=== PATIENT | female | born 1935 | race Caucasian/White ===

== ENCOUNTER 2016-09-11 18:38 | Inpatient (IN) ==
--- NOTE | 2016-09-11 18:57 | Emergency Department Note ---
Disposition Clinical Impression: Fracture, intertrochanteric, left femur Qualifiers: Encounter type: initial encounter Fracture type: closed Qualified Code(s): S72.142A - Displaced intertrochanteric fracture of left femur, initial encounter for closed fracture Disposition: Admitted As Inpatient Condition: Good Referrals: Unassigned,Provider [Non-Partnered Physician] - Forms: ED Satisfaction Letter Time of Disposition: 20:28 Fall HPI - General Chief Complaint: ED Fall Stated Complaint: fall Time Seen by Provider: 09/11/16 18:41 Source: patient, family Mode of arrival: ambulatory Limitations: no limitations Nursing Notes Reviewed: Yes Vital Signs Reviewed: Yes - History of Present Illness HPI Narrative: 80-year-old female history of Parkinson's disease and scoliosis presents to the ED status post fall. Daughter and son-in-law are at bedside to help provide history. Patient reportedly fell from standing at home. Complains of pain in the left knee and left hip. She was attempting to transition from a walker to wheelchair. She denies any prodromal symptoms such as lightheadedness, chest pain, shortness of breath, pain in the legs or weakness. She has been progressively getting weaker over the past several years. Denies any prior surgeries or pain in the hip or knee. Does not take any blood thinners or anticoagulants. No recent illness. 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 Constitutional: Denies: fever, chills Cardiovascular: Denies: chest pain Respiratory: Denies: cough, dyspnea Musculoskeletal: Reports: back pain, arthralgia (left knee). Denies: neck pain Fall PMH - Past Medical History Medical history: Reports: arthritis, hypertension Reports: Parkinson's Disease Surgical history: Reports: cholecystectomy, herniorrhaphy, hysterectomy Psychiatric history: Reports: no psych history - Social History Smoking Status: Former smoker Alcohol use: Reports: none Drug use: Reports: none Physical Exam - General Limitations: no limitations General appearance: alert, anxious - Head Head exam: atraumatic, normocephalic, normal inspection - Eye Eye exam: Present: normal appearance, PERRL, EOMI - ENT ENT exam: normal exam, normal oropharynx, mucous membranes moist - Neck Neck exam: Present: normal inspection, full ROM, trachea midline - Chest Chest inspection: Present: normal inspection, symmetric chest wall rise. Absent : tenderness - Respiratory Respiratory exam: Present: normal lung sounds bilaterally, other (hx of scoliosis but has good lung sounds bilaterally). Absent: respiratory distress, wheezes - Cardiovascular Cardiovascular exam: Present: regular rate, normal rhythm, normal heart sounds - Abdominal Exam Abdominal exam: Present: soft, Non-Tender, normal bowel sounds. Absent: tenderness, distention, guarding, rebound, rigidity - Extremities Exam Extremities exam: Present: normal capillary refill. Absent: calf tenderness - Expanded Lower Extremity Exam Hip/Pelvis exam: Present: tenderness (left), deformity, internal rotation, shortening, pelvis stable. Absent: swelling, abrasion, laceration, ecchymosis, erythema Upper leg exam: Absent: tenderness, swelling, deformity, dislocation Knee exam: Present: tenderness, other (unable to fully assess, no bony tenderness, in constant flexion). Absent: swelling, deformity, erythema Lower leg exam: Absent: tenderness Ankle exam: Present: normal inspection, full ROM. Absent: tenderness Foot/toe exam: Present: normal inspection, full ROM Neurovascular/Tendon exam: Present: normal capillary refill. Absent: pulse deficit, motor deficit, sensory deficit, tendon deficit Gait: not tested/not observed - Back Exam Back exam: Present: other (sciolosis) - Neurological Exam Neurological exam: Present: alert, oriented X3 - Psychiatric Psychiatric exam: Present: normal affect, anxious - Skin Skin exam: Present: warm, dry, intact, normal color Course Course Narrative: 80-year-old female history of generalized weakness in Parkinson's presents to ED status post fall. This occurred at home prior to arrival. Patient presents in a rotated position with legs appearing to be equal length but internally rotated. She does not move the knee or hip with passive or active motion due to pain. She has good peripheral pulses to posterior tibial arteries. Femoral pulses unable to appreciate due to positioning. Unable to fully evaluate knee due to positioning, remains in full flexion. She has a severely scoliotic spine but no bony tenderness. Pelvis is stable. Discussed with family if further workup is necessary. They state she has been weak for over 10 years and recently diagnosed with Parkinson's and now on medications. This unfortunately is her first time falling like this. Will proceed with x-ray of left hip and knee. Offered medication for pain, patient kindly refuses, stating not painful as long as no one touches it. Informed her to ask if pain becomes untolerable - Reevaluation(s) Reevaluation #1: Received call from electronics technician apprentice that she has an obvious left femur fracture and unable to obtain knee images. Re-examined her knee and does not have significant tenderness, will hold off on images pending CT of pelvis and hip. Discussed results with patient and daughter. Patient continues to deny significant pain that she would like medications. She appears comfortable as long as her legs remain immobile. Dilaudid ordered for pain. Labs will be drawn as she will likely need surgery. Time: 19:36 Reevaluation #2: Discussed with patient and family. Ok to admit here. Patient is very pleased to hear the name Dr. Kaur. Discussed the importance of admission for pain control and any further intervention. Will admit to hospitalist for femur fracture. Patient and family in agreement with plan. Patient voices concerns with anesthesia as last procedure 10+ years ago she had a prolonged wake time. Reiterated the importance of informing staff if surgery is considered. IV dilaudid ordered for pain. Basic labs and type/screen ordered. Time: 20:10 - Consultations Consultation #1: Spoke with maximo Lopez to admit will like to admit to hospitalist and evaluate tomorrow morning for left intertrochanteric fracture. Time: 19:55 Consultation #2: Spoke with maximo Marr to admit for left intertrochanteric fracture. Time: 20:29 Vital Signs Temperature 97.5 F L 09/11/16 18:40 Pulse Rate 92 09/11/16 18:40 Respiratory Rate 18 09/11/16 18:40 Blood Pressure 138/61 09/11/16 18:40 O2 Sat by Pulse Oximetry 98 09/11/16 18:40 Temperature 97.5 F L 09/11/16 18:40 Pulse Rate 92 09/11/16 18:40 Respiratory Rate 18 09/11/16 18:40 Blood Pressure 138/61 09/11/16 18:40 O2 Sat by Pulse Oximetry 98 09/11/16 18:40 Oxygen Delivery Oxygen Delivery Room Air Fall - Medical Records Medical records reviewed: Yes I reviewed the patient's medical records. - Lab Data Result diagrams: 09/11/16 20:17 Lab Results 09/11/16 Range/Units 20:17 WBC 18.5 H (4.3-11.1) K/mcL RBC 4.12 (3.82-4.97) M/mcL Hgb 12.3 (11.5-15.4) g/dL Hct 37.6 (35.3-44.9) % MCV 91.3 (83.0-100.0) fL MCH 29.9 (28.0-33.3) pg MCHC 32.7 (31.6-35.5) g/dL RDW 12.9 (11.5-14.5) % Plt Count 284 (140-400) K/mcL MPV 10.2 (9.4-12.4) fL Immature Gran % 0.4 (0-4) % Seg Neutrophils % 81.2 % Lymphocytes % 11.6 % Monocytes % 6.4 % Eosinophils % 0.2 % Basophils % 0.2 % Neutrophils # 15.0 H (1.6-8.9) K/mcL Lymphocytes # 2.1 (0.6-4.6) K/mcL Monocytes # 1.2 (0.0-1.3) K/mcL Eosinophils # 0.0 (0.0-0.6) K/mcL Basophils # 0.0 (0.0-0.2) K/mcL - Radiology Data Radiology results reviewed: Yes I reviewed the patient's radiology results. Hip X-Ray 09/11/16 18:48 IMPRESSION: Left intertrochanteric fracture. D/ / 09/11/2016 19:26:54 Greg Al MD / eric Interpreting Provider: Greg Al MD Knee X-Ray 09/11/16 18:48 IMPRESSION: No acute fracture. D/ / 09/11/2016 19:27:13 Greg Al MD / eric Interpreting Provider: Greg Al MD - EKG Data EKG attestation: Yes I reviewed and interpreted this EKG. EKG results narrative: EKG performed 1950 there is some underlying artifact but appears to be sinus rhythm with occasional PVCs 94 bpm, no significant ST or T wave changes. This is compared to or EKG performed 07/20/2011 which shows normal sinus rhythm 76 bpm with borderline first-degree AV block. No acute ischemic changes.
--- NOTE | 2016-09-11 18:58 | Emergency Department Note ---
START Narrative - START START: I examined this patient and my medical decision-making was reviewed with the HYBR[employer]IV[employer]IVES TRADER/PA/Advanced Practice Nurse/Resident Physician. I agree with the documented findings, disposition and treatment plan as described except to the extent set forth below. ED attending: Patient's emergency medicine resident Dr. RUTHERFORD. Please see copy of this note for H&P evaluation and management and ED disposition. We both had independent [id number] time in contact with this patient. Briefly: 80-year-old female history of Parkinson's comes in with progressive weakness and unsteady gait. Injured her left hip and knee which is slightly swollen. Not on any blood thinners other than aspirin. Afebrile with stable vital signs. Plain films of the hip and knee are pending. Disposition pending. Patient stable
[2016-09-11] MEDS ORDERED: Ondansetron 4 MG/2 ML VIAL IVP STA (19:12)
[2016-09-11] MEDS ORDERED: *HR* HYDROmorphone (PF) 1 MG/ML SYRINGE IVP ONE (19:12)
[2016-09-11 20:26] LABS: Basophils % 0.2 %; Eosinophils % 0.2 %; Hematocrit 37.6 % (35.3-44.9); Hemoglobin 12.3 g/dL (11.5-15.4); Immature Granulocytes % 0.4 % (0-4); Lymphocytes # 2.1 K/mcL (0.6-4.6); Lymphocytes % 11.6 %; Mean Corpuscular HGB Conc 32.7 g/dL (31.6-35.5); Mean Corpuscular Hemoglobin 29.9 pg (28.0-33.3); Mean Corpuscular Volume 91.3 fL (83.0-100.0); Mean Platelet Volume 10.2 fL (9.4-12.4); Monocytes # 1.2 K/mcL (0.0-1.3); Monocytes % 6.4 %; Platelet Count 284 K/mcL (140-400); Red Blood Count 4.12 M/mcL (3.82-4.97); Red Cell Distribution Width 12.9 % (11.5-14.5); Segmented Neutrophils % 81.2 %
[2016-09-11 20:33] LABS: INR 1.2; Prothrombin Time 12.8 Seconds (9.4-12.1)
[2016-09-11 20:38] LABS: BUN/Creatinine Ratio 18 (6-26); Blood Urea Nitrogen 13 mg/dL (7-20); Calcium 9.5 mg/dL (8.6-10.8); Carbon Dioxide 25 mEq/L (19-29); Chloride 100 mEq/L (98-109); Glucose 142 mg/dL (70-99); Osmolality,Calculated 285 (280-300); Potassium 4.9 mEq/L (3.5-4.5); Sodium 136 mEq/L (136-145); eGFR For African Americans > 60 (> 60); eGFR For Non-African Americans > 60 (> 60)
[2016-09-11] MEDS ORDERED: Mag Hydrox/Al Hydrox/Simeth 30 ML UDC PO PRN (21:40)
[2016-09-11] MEDS ORDERED: Ondansetron 4 MG/2 ML VIAL IVP PRN (21:40)
[2016-09-11] MEDS ORDERED: *HR* Morphine 2 MG/ML SYRINGE IVP PRN (21:40)
[2016-09-11] MEDS ORDERED: Acetaminophen 325 MG TABLET PO PRN (21:40)
[2016-09-11] MEDS ORDERED: MOM Conc 10 ML UD.LIQ PO PRN (21:40)
[2016-09-11] MEDS ORDERED: Naloxone 0.4 MG/ML INJ IVP PRN (21:40)
[2016-09-11] MEDS ORDERED: Ipratropium/Albuterol Neb 3 ML IH PRN (21:45)
[2016-09-11] MEDS ORDERED: Albuterol 2.5 MG/3 ML NEBULIZER IH PRN (21:45)
--- NOTE | 2016-09-11 21:49 | Internal Med History&Physical ---
<Diana Roldan - Last Filed: 09/11/16 21:56> Date of Encounter: 09/11/16 Time of Encounter: 21:15 Assessment and Plan (1) CAP (community acquired pneumonia) Current visit: Yes Status: Acute CT abd/pelvis shows perihilar ground glass opacity. Pt denies fever, cough, or chest pain. Will treat as CAP empirically. WBC 18.5. CT chest w/o contrast ordered Rocephin 1 gram IV daily Azithromycin 500mg IV daily Duonebs q4h Albuterol nebs q2hprn Incentive Spriometry Monitor labs (2) Fracture, intertrochanteric, left femur Current visit: Yes Status: Acute Pt fell at home this evening. Intertrochanteric fracture of the L hip with varus deformity and [address] Kaur has already been consulted Pain control NPO after midnight for pending/potential surgery Qualifiers: Encounter type: initial encounter Fracture type: closed Qualified Code(s) : S72.142A - Displaced intertrochanteric fracture of left femur, initial encounter for closed fracture (3) Scoliosis Current visit: Yes Status: Acute Stable Qualifiers: Scoliosis type: unspecified scoliosis Spinal region: unspecified Qualified Code(s): M41.9 - Scoliosis, unspecified (4) HTN (hypertension) Current visit: Yes Status: Chronic VSS. Will continue to monitor. Pt on telemetry and VS q4h ordered. Waiting on home medication list from family Qualifiers: Hypertension type: essential hypertension Qualified Code(s): I10 - Essential (primary) hypertension (5) Decubitus ulcer of left ischium, stage 3 Current visit: No Status: Acute stable. Present prior to admission. (6) Decubitus ulcer of right buttock, stage 2 Current visit: No Status: Acute Stable. Present prior to admission. Internal Medicine - H&P: HPI Chief complaint: fall, hip fx today Admitted From: Home Plans for Post Hospital Care: Transfer Inp Rehab Fac History of present illness: Ms. Urbina is a 80 year old female with a history of scoliosis, HTN, GERD, and most recently, Parkinson's. Pt fell at home tonight, reports that she does not know why, but denies cp, sob, or dizziness prior to event. Pt has acute intertrochanteric fracture of the L hip with varus deformity and 90 degree angular deformity without pelvic fracture. CT abd and pelvis shows perihilar ground glass opacity with R hemidiaphragm elevation and normal cardiac size. Family at bs and will go home to get home medication list. Pt is a poor historian, caregiver is at bedside and is unaware of history or medications. Past Med Surg Social Fam HX - Past Medical History Medical history: arthritis, hypertension Psychiatric history: no psych history - Past Surgical History Surgical History: cholecystectomy, herniorrhaphy, hysterectomy - Social History Smoking Status: Former smoker Smokeless Tobacco Status: No Alcohol use: none Drug use: none - Family History Mother Living Status: Hx Family Endocrine Disorder: Yes Internal Medicine - H&P: Meds Allergies No Known Allergies Allergy (Unverified 08/01/15 13:15) All Systems PM: A 10-system review of systems was performed and is negative for pertinent findings except as documented above in the HPI. - Constitutional Constitutional: falls, no chills, no fever(s), no weakness - Cardiovascular Cardiovascular ROS IM: no chest pain, no dyspnea, no dyspnea on exertion, no edema - Respiratory Respiratory: no cough, no dyspnea, no dyspnea on exertion, no wheezing, no chest congestion, no excessive phlegm production - Gastrointestinal Gastrointestinal: no diarrhea, no nausea, no vomiting - Genitourinary Genitourinary: no dysuria - Constitutional Vitals: Temp Pulse Resp BP Pulse Ox 97.1 F L 95 15 133/70 98 09/11/16 21:26 09/11/16 21:26 09/11/16 21:26 09/11/16 21:26 09/11/16 21:26 General appearance: Present: A&O X 3, pleasant - Head Head exam: Present: atraumatic, normal inspection - ENT ENT exam: Present: mucous membranes dry, normal exam, normal external ear exam - Respiratory Respiratory exam: Present: decreased breath sounds, rhonchi. Absent: accessory muscle use, chest wall tenderness Additional comments: ronchi in evelia bases, clears with cough. No wheezing. - Cardiovascular Cardiovascular exam: Present: RRR, +S1, +S2. Absent: diastolic murmur, systolic murmur - GI/Abdominal GI/Abdominal exam: Present: normal bowel sounds, soft. Absent: tenderness - Extremities Exam Extremities exam: Present: normal capillary refill, tenderness, warm, radial pulses palpable and symetrical. Absent: calf tenderness, full ROM, pedal edema Additional comments: Pt is actually lying on L hip. She says that she is most comfortable like that. Both legs are bent with blanket between. - Neurological Exam Neurological exam: Present: alert, oriented X3. Absent: speech deficit Internal Med - H&P Results - Labs CBC & Chem 7: 09/11/16 20:17 09/11/16 20:17 <ThompsonGene Clement - Last Filed: 09/12/16 05:59> Date of Encounter: 09/11/16 Assessment and Plan (1) Closed comminuted intertrochanteric fracture of left femur Current visit: Yes Status: Acute . (2) Kyphoscoliosis deformity of spine Current visit: Yes Status: Chronic . (3) DDD (degenerative disc disease), thoracolumbar Current visit: Yes Status: Chronic . (4) Subluxation of L3-L4 lumbar vertebra Current visit: Yes Status: Chronic . Qualifiers: Encounter type: initial encounter Qualified Code(s): S33.130A - Subluxation of L3/L4 lumbar vertebra, initial encounter (5) Spigelian hernia Current visit: Yes Status: Chronic . (6) Parkinson disease Current visit: Yes Status: Chronic . (7) Frailty Current visit: Yes Status: Chronic . (8) Generalized weakness Current visit: Yes Status: Chronic . (9) HTN (hypertension) Current visit: Yes Status: Chronic Qualifiers: Hypertension type: essential hypertension Qualified Code(s): I10 - Essential (primary) hypertension (10) Decubitus ulcer of left ischium, stage 3 Current visit: Yes Status: Acute (11) Decubitus ulcer of right buttock, stage 2 Current visit: Yes Status: Acute Internal Medicine - H&P: HPI History of present illness: Ms. Urbina is a 80 year old female admitted to [facility] in the emergency department with a chief complaint of mechanical fall with injury to the left hip. The patient was visited and interviewed and examined. She was found to be mildly encephalopathic, frail, inattentive with garbled incomprehensible speech. As such she was a unreliable, non-historian of current circumstances and events and details were collected from the family members at the bedside and tangible medical records. I examined this patient and my medical decision-making was reviewed with the Advanced Practice Nurse. For this encounter, I have reviewed the [facility] documentation, treatment plan, and medical decision making; and I have had face to face time with this patient. I agree with the documented findings, disposition and treatment plan as described except to the extent set forth below. Cumulative laboratory and radiographic database was reviewed and considered and discussed. Given the patient's presenting concerns, past medical history, clinical findings and symptoms, she is admitted at this time to undergo further evaluation and disposition. Preliminary impressions suggested an unprovoked mechanical fall patient with advanced Parkinson's disease and severe multilevel misalignment due to scoliotic curvature of the spine. Associated gait instability due to her cancer disease with progressive weakness and unsteadiness of gait compounds this presentation.. The patient sustained as a consequence of her fall acute comminuted intertrochanteric fracture of the left hip with varus deformity. Not currently on any chronic anticoagulation, blood thinners or antiplatelet agents beyond a baby aspirin daily. The patient has not undergone any recent surgical interventions nor any prolong hospitalizations. No report of any current acute illnesses , travel or sick exposures. Beyond hypertension, thepatient lacks any other significant active cardiovascular risk factors or historical events. She is a former smoker of greater than 10 years abstinence. Collectively, she presents a low to moderate cardiovascular risk for major acute coronary event in setting of anticipated orthopedic surgical intervention. Workup and treatments will proceed comprehensively. Past Med Surg Social Fam HX - Past Medical History Source: old records reviewed Medical history: arthritis, osteoporosis, seizures (Perkinson's disease), other (0 left lower abdominal quadrant speaking daily and hernia containing bowel without evidence of incarceration.) All Systems PM: A 10-system review of systems was performed and is negative for pertinent findings except as documented above in the HPI. - Constitutional Vitals: Temp Pulse Resp BP Pulse Ox 97.3 F L 106 15 133/71 97 09/12/16 04:00 09/12/16 04:00 09/12/16 04:00 09/12/16 04:00 09/12/16 04:00 Internal Med - H&P Results - Labs CBC & Chem 7: 09/11/16 20:17 09/11/16 20:17 Labs: Cardiac Enzymes 09/11/16 Range/Units 22:12 Troponin I 0.00 (0-0.03) ng/mL - Impressions ITS Impressions Chest CT 09/11/16 21:39 IMPRESSION: 1. Chronic elevation of the right greater than left hemidiaphragm with associated atelectasis in the right lower lobe and minimal atelectasis in the left lower lobe. 2. Acute pneumonitis is considered unlikely, as the lungs are otherwise clear. D/ / Robin Layton MD / Robin Layton MD Interpreting Provider: Robin Layton MD Vital Signs Temp Pulse Resp BP Pulse Ox 09/12/16 04:00 97.3 F L 106 15 133/71 97 09/12/16 00:00 97.1 F L 101 15 135/75 98 09/11/16 21:26 97.1 F L 95 15 133/70 98 09/11/16 20:42 0 F L 16 136/72 09/11/16 20:33 0 F L 97 16 136/72 97 09/11/16 18:40 97.5 F L 92 18 138/61 98 Intake and Output 09/11/16 09/11/16 09/12/16 15:59 23:59 07:59 Intake Total 350 / 350 Output Total 700 / 700 Balance -350 / -350 Intake: IV Fluids 350 / 350 Zithromax 500 mg In 250 / 250 Dextrose 5% 250 ML @ 252 mls/hr IVPB Q24H [facility] Rx#: [id number] Rocephin 1,000 MG In 100 / 100 Dextrose 5% (Minibag+) 100 ML 100 ML @ 200 mls/ hr IVPB DAILY [facility] Rx#: [id number] Output: Catheter 700 / 700 Other: Weight 73.482 kg Short CBC 09/11/16 Range/Units 20:17 WBC 18.5 H (4.3-11.1) K/mcL Hgb 12.3 (11.5-15.4) g/dL Hct 37.6 (35.3-44.9) % Plt Count 284 (140-400) K/mcL Neutrophils # 15.0 H (1.6-8.9) K/mcL BMP 09/11/16 Range/Units 20:17 Sodium 136 (136-145) mEq/L Potassium 4.9 H (3.5-4.5) mEq/L Chloride 100 (98-109) mEq/L Carbon Dioxide 25 (19-29) mEq/L BUN 13 (7-20) mg/dL Creatinine 0.73 (0.57-1.11) mg/dL Glucose 142 H (70-99) mg/dL Calcium 9.5 (8.6-10.8) mg/dL Cardiac Enzymes 09/11/16 Range/Units 22:12 Troponin I 0.00 (0-0.03) ng/mL Abnormal lab results WBC 18.5 K/mcL (4.3-11.1) H 09/11/16 20:17 Neutrophils # 15.0 K/mcL (1.6-8.9) H 09/11/16 20:17 PT 12.8 Seconds (9.4-12.1) H 09/11/16 20:17 Potassium 4.9 mEq/L (3.5-4.5) H 09/11/16 20:17 Glucose 142 mg/dL (70-99) H 09/11/16 20:17 Allergies Allergy/AdvReac Type Severity Reaction Status Date / Time No Known Allergies Allergy Unverified 08/01/15 13:15 Laboratory Results WBC 18.5 K/mcL (4.3-11.1) H 09/11/16 20:17 RBC 4.12 M/mcL (3.82-4.97) 09/11/16 20:17 Hgb 12.3 g/dL (11.5-15.4) 09/11/16 20: Hct 37.6 % (35.3-44.9) 09/11/16 20: MCV 91.3 fL (83.0-100.0) 09/11/16 20: MCH 29.9 pg (28.0-33.3) 09/11/16 20: MCHC 32.7 g/dL (31.6-35.5) 09/11/16 20: RDW 12.9 % (11.5-14.5) 09/11/16 20:17 Plt Count 284 K/mcL (140-400) 09/11/16 20: MPV 10.2 fL (9.4-12.4) 09/11/16 20:17 Immature Gran % 0.4 % (0-4) 09/11/16 20:17 Seg Neutrophils % 81.2 % 09/11/16 20:17 Lymphocytes % 11.6 % 09/11/16 20:17 Monocytes % 6.4 % 09/11/16 20:17 Eosinophils % 0.2 % 09/11/16 20:17 Basophils % 0.2 % 09/11/16 20:17 Neutrophils # 15.0 K/mcL (1.6-8.9) H 09/11/16 20:17 Lymphocytes # 2.1 K/mcL (0.6-4.6) 09/11/16 20:17 Monocytes # 1.2 K/mcL (0.0-1.3) 09/11/16 20: Eosinophils # 0.0 K/mcL (0.0-0.6) 09/11/16 20: Basophils # 0.0 K/mcL (0.0-0.2) 09/11/16 20:17 PT 12.8 Seconds (9.4-12.1) H 09/11/16 20:17 INR 1.2 09/11/16 20:17 APTT 27.0 Seconds (26.0-36.0) 09/11/16 20:17 Sodium 136 mEq/L (136-145) 09/11/16 20:17 Potassium 4.9 mEq/L (3.5-4.5) H 09/11/16 20:17 Chloride 100 mEq/L (98-109) 09/11/16 20:17 Carbon Dioxide 25 mEq/L (19-29) 09/11/16 20:17 BUN 13 mg/dL (7-20) 09/11/16 20:17 Creatinine 0.73 mg/dL (0.57-1.11) 09/11/16 20:17 Est GFR ( Amer) > 60 (> 60) 09/11/16 20:17 Est GFR (Non-Af Amer) > 60 (> 60) 09/11/16 20:17 BUN/Creatinine Ratio 18 (6-26) 09/11/16 20:17 Glucose 142 mg/dL (70-99) H 09/11/16 20:17 Calculated Osmolality 285 (280-300) 09/11/16 20:17 Calcium 9.5 mg/dL (8.6-10.8) 09/11/16 20:17 Troponin I 0.00 ng/mL (0-0.03) 09/11/16 22:12 Blood Type A POSITIVE 09/11/16 20:17 Antibody Screen NEGATIVE 09/11/16 20:17 Impressions Hip X-Ray 09/11/16 18:48 IMPRESSION: Left intertrochanteric fracture. D/ / 09/11/2016 19:26:54 Greg Al MD / eric Interpreting Provider: Greg Al MD Knee X-Ray 09/11/16 18:48 IMPRESSION: No acute fracture. D/ / 09/11/2016 19:27:13 Greg Al MD / eric Interpreting Provider: Greg Al MD Abdomen/Pelvis CT 09/11/16 19:12 IMPRESSION: There is perihilar ground-glass opacity, possibly atelectasis. Pneumonitis and edema are not excluded. There is left lateral subluxation of L3 on L4. There is multilevel degenerative disc disease and facet arthropathy. Acute intertrochanteric fracture of the left hip with varus deformity. Pelvic floor laxity with low position of the bladder floor and rectum. D/ / Jamar Samuels MD / Jamar Samuels MD Interpreting Provider: Jamar Samuels MD Chest CT 09/11/16 21:39 IMPRESSION: 1. Chronic elevation of the right greater than left hemidiaphragm with associated atelectasis in the right lower lobe and minimal atelectasis in the left lower lobe. 2. Acute pneumonitis is considered unlikely, as the lungs are otherwise clear. D/ / Robin Layton MD / Robin Layton MD Interpreting Provider: Robin Layton MD - Attending Attestation My signature below is to certify that this patient is under my care and that I, or the Nurse Practitioner working with me, has had a [id number] encounter with this patient. Care has been reviewed and discussed in detail with the patient and family. Questions addressed. Advance care directive discussion briefly addressed. The patient does not possess any declared healthcare restriction at this time. Outpatient medication schedule will be reviewed, confirmed and facilitated as appropriate. Reconciliation of home treatments including adjustments, substitutions and reintroduction to the treatment regimen will address necessary maintenance therapies for chronic pre-existing medical conditions. Smoking cessation counseling briefly addressed. Patient is a former smoker. Pain management needs will be addressed. Initial consultative opinions have been requested of social economist, physical and occupational therapy, and orthopedic surgery.. Hospital course will depend on clinical findings, treatment response and potential consultative interventions. The patient is a risk of further acute clinical decline and morbidity given his presenting chief complaint, frailty disease. Condition is serious. Prognosis is guarded. CODE STATUS is full.
[2016-09-11] MEDS ORDERED: Azithromycin 500 MG in D5% in Water 250 ML IVPB SCH (22:00)
[2016-09-12] MEDS ORDERED: *HR* OxyCODONE Immed Rel 5 MG TABLET PO PRN (04:50)
[2016-09-12] MEDS ORDERED: *HR* Morphine 2 MG/ML SYRINGE IVP PRN ×2 (04:54→18:01)
[2016-09-12] MEDS ORDERED: 0.9 % Sodium Chloride 1,000 ML IVC SCH ×2 (05:00→18:01)
[2016-09-12] MEDS ORDERED: *HR* Heparin 5,000 UNIT/ML VIAL SQ SCH (06:00)
[2016-09-12 08:26] LABS: Basophils % 0.1 %; Hematocrit 35.9 % (35.3-44.9); Hemoglobin 11.4 g/dL (11.5-15.4); Immature Granulocytes % 0.4 % (0-4); Lymphocytes # 1.5 K/mcL (0.6-4.6); Lymphocytes % 9.7 %; Mean Corpuscular HGB Conc 31.8 g/dL (31.6-35.5); Mean Corpuscular Hemoglobin 28.6 pg (28.0-33.3); Mean Corpuscular Volume 90.2 fL (83.0-100.0); Mean Platelet Volume 10.5 fL (9.4-12.4); Monocytes # 1.3 K/mcL (0.0-1.3); Monocytes % 8.3 %; Neutrophils # 12.6 K/mcL (1.6-8.9); Platelet Count 268 K/mcL (140-400); Red Blood Count 3.98 M/mcL (3.82-4.97); Red Cell Distribution Width 12.8 % (11.5-14.5); Segmented Neutrophils % 81.5 %
[2016-09-12 08:31] LABS: BUN/Creatinine Ratio 19 (6-26); Blood Urea Nitrogen 13 mg/dL (7-20); Calcium 9.2 mg/dL (8.6-10.8); Carbon Dioxide 25 mEq/L (19-29); Chloride 98 mEq/L (98-109); Glucose 127 mg/dL (70-99); Osmolality,Calculated 278 (280-300); Potassium 4.7 mEq/L (3.5-4.5); Sodium 133 mEq/L (136-145); eGFR For African Americans > 60 (> 60); eGFR For Non-African Americans > 60 (> 60)
--- NOTE | 2016-09-12 09:39 | Internal Med Progress Note ---
<Jamar Rodriguez - Last Filed: 09/12/16 09:40> Date of Encounter: 09/12/16 Time of Encounter: 09:37 - Assessment and plan (1) Intertrochanteric fracture of left femur Current Visit: Yes Status: Acute Assessment and plan: Patient with left intertrochanteric fracture. She has poor functional capacity at baseline. She will also likely be a difficult airway given her scoliosis. She reports difficulty "waking up from surgery in the past" Denies bleeding disorders or being on anticoagulation or plavix. She is on a home beta troy which I will continue. Home med list still needs to be updated. EKG is somewhat challenging to interpret given her parkinsons. Sinus rhythm Rate of 90 frequent PVCs No acute findings. She is an acceptable risk for surgery based off of the Revised cardiac risk index. will defer post operative care to orthopedic surgery. Appreciate Dr. Kaur's assistance. (2) SIRS (systemic inflammatory response syndrome) Current Visit: Yes Status: Acute Assessment and plan: She has had tachycardia and leukocytosis. I do not think this is sepsis. She dose not appear toxic. She denies cough, wheeze, or increased dyspnea. Dose have some perihilar ground glass opacities on CT. Will check blood cultures and lactic acid . Continue Rocephin and azithromycin for possible CAP. (3) Kyphoscoliosis Current Visit: Yes Status: Acute (4) KAR (obstructive sleep apnea) Current Visit: Yes Status: Acute Assessment and plan: CPAP at [facility]. (5) Chronic hypoxemic respiratory failure Current Visit: Yes Status: Acute Assessment and plan: patient wears O2 at night. Likely from a combination of scoliosis and KAR. (6) Parkinsons disease Current Visit: Yes Status: Acute Assessment and plan: continue home medication awaiting home med list from family. (7) Fall Current Visit: Yes Status: Acute (8) Physical deconditioning Current Visit: Yes Status: Acute Assessment and plan: patient nearly bed bound. PT/OT (9) Leukocytosis Current Visit: Yes Status: Acute Assessment and plan: possibly reactive. However she has possible CAP. continue antibiotics. (10) Medication list absent Current Visit: Yes Status: Acute (11) Hyperkalemia Current Visit: Yes Status: Acute Assessment and plan: mild we will trend (12) DVT prophylaxis Current Visit: Yes Status: Acute Assessment and plan: SQ heparin - Subjective Interval history: This AM Mrs Urbina states that she is very sleepy. She did not have much sleep last night. She states that her current pain is minimal and well controlled. She denies any cough or wheeze. She dose where oxygen at night. Her daughter states that this is due to her severe scoliosis and sleep apnea. She is near bed bound at her baseline but dose occasionally transfer to a chair. she denies any significant cardiac history. She denies any recent cardiac testing. She denies any chest pain, syncope or presyncope. She states that her fall was mechanical. She has no further complaints or concerns at this time. Her daughter is also present and has no further concerns at this time. - Constitutional Vitals: Temp Pulse Resp BP Pulse Ox 98.8 F 104 16 127/78 93 L 09/12/16 06:52 09/12/16 06:52 09/12/16 06:52 09/12/16 06:52 09/12/16 06:52 General appearance: Present: A&O X 3, pleasant - Head Head exam: Present: atraumatic, normocephalic - Eye Eye exam: Present: PERRL, conjuntiva pink, sclera anicteric Pupils: Present: PERRL - Neck Neck exam general surgery: Present: supple, trachea midline. Absent: lymphadenopathy - Respiratory Respiratory exam: Present: CTAB. Absent: accessory muscle use, rales, rhonchi, wheezes - Cardiovascular Cardiovascular exam: Present: +S1, +S2, tachycardia. Absent: diastolic murmur, gallop, rubs, systolic murmur - GI/Abdominal GI/Abdominal exam: Present: normal bowel sounds, soft, no peritoneal signs. Absent: distended, tenderness - Extremities Exam Extremities exam: Present: warm, radial pulses palpable and symetrical. Absent : calf tenderness, cyanotic, pedal edema Additional comments: both feet are warm with intact pulses. The left leg is externally rotated. - Back Exam Additional comments: kyphosis and scoliosis of the thoracic spine present. - Skin Skin exam: Present: dry, intact Additional comments: Daughter reports her mother has sacral decubitus ulcers. I am unable to exam at this time because patient will not tolerate this kind of movement with a fractured hip. Internal Medicine: Result - Labs CBC & Chem 7: 09/12/16 07:36 09/12/16 07:36 Labs: Short CBC 09/12/16 Range/Units 07:36 WBC 15.5 H (4.3-11.1) K/mcL Hgb 11.4 L (11.5-15.4) g/dL Hct 35.9 (35.3-44.9) % Plt Count 268 (140-400) K/mcL Neutrophils # 12.6 H (1.6-8.9) K/mcL BMP 09/12/16 07:36 Sodium 133 L Potassium 4.7 H Chloride 98 Carbon Dioxide 25 BUN 13 Creatinine 0.69 Glucose 127 H Calcium 9.2 - ABG Interpretation ABG results: PT/INR, D-dimer PT 12.8 Seconds (9.4-12.1) H 09/11/16 20:17 Consult Discharge Plan - Plan Referrals: Chika Clemens MD [Primary Care Provider] - <Lazarus South H - Last Filed: 09/12/16 17:26> - Constitutional Vitals: Temp Pulse Resp BP Pulse Ox 97.9 F 69 16 117/60 96 09/12/16 17:00 09/12/16 17:20 09/12/16 17:20 09/12/16 17:20 09/12/16 17:20 Internal Medicine: Result - Labs CBC & Chem 7: 09/12/16 07:36 09/12/16 07:36 Labs: Short CBC 09/12/16 Range/Units 07:36 WBC 15.5 H (4.3-11.1) K/mcL Hgb 11.4 L (11.5-15.4) g/dL Hct 35.9 (35.3-44.9) % Plt Count 268 (140-400) K/mcL Neutrophils # 12.6 H (1.6-8.9) K/mcL [facility] 09/12/16 07:36 Sodium 133 L Potassium 4.7 H Chloride 98 Carbon Dioxide 25 BUN 13 Creatinine 0.69 Glucose 127 H Calcium 9.2 - ABG Interpretation ABG results: PT/INR, D-dimer PT 12.8 Seconds (9.4-12.1) H 09/11/16 20:17 - Impressions Impressions Fluoroscopy 09/12/16 14:25 IMPRESSION: Intraprocedural fluoroscopic spot images as above. See separate procedure report for more information. D/ / Phillip Marcial MD / Phillip Marcial MD Interpreting Provider: Phillip Marcial MD - Attending Attestation patient seen in PACU after Sx. Very somnolent due to anesthesia. MOnitor at the floor. I examined this patient and my medical decision-making was reviewed with the WET PLANT OPERATOR/PA/Advanced Practice Nurse/Resident Physician. I agree with the documented findings, disposition and treatment plan as described except to the extent set forth below.
[2016-09-12] MEDS ORDERED: ceFAZolin 2,000 MG in D5% in Water 100 ML IVPB ONE (11:13)
--- NOTE | 2016-09-12 11:19 | Orthopedic Consult Note ---
Date of Encounter: 09/12/16 Time of Encounter: 11:15 History of Present Illness Chief complaint: Left hip pain HPI: Ms. Urbina is a 80 year old female who sustained a fall at home in the evening of 09/11/16. She sustained an injury to her left hip. She is brought to the emergency room and [facility] for evaluation including of imaging studies revealed evidence of a intertrochanteric fracture of the left hip. She is admitted for definitive management. For complete history and physical data please see the completed portion of the medical records. Pertinent orthopedic examination this time his left lower extremity held in a shortened, flexed, externally rotated position. Distal neurosensory exam is grossly intact. X-rays reveal a displaced intertrochanteric fracture of the left proximal femur. In addition there is a severe scoliotic deformity of the lumbar spine. Laboratory data includes a hemoglobin of 11.4. Platelet count is normal at 268. White blood cell count remains elevated at 15.5. Impression: Acute displaced intertrochanteric fracture left proximal femur Recommendation: I discussed with the patient and with her daughter who has power of traffic law attorney the fracture and treatment recommendations. I would recommend that we proceed with intramedullary nailing of the left hip to allow her to begin transfers and mobilization as soon as possible. Discussed surgical procedure as well as potential risks and complications including but not limited to bleeding infection blood clots nerve injury stiffness malunion nonunion and leg length or rotational deformities. Daughter's home where and agrees to proceed with surgery as outlined. She has signed informed consent for the surgery. We will proceed today when operating time is available. Thank you for allowing me to see and care for Mrs. Urbina. Sincerely, Martín Kaur,DO Past Med Surg Social Fam HX - Past Medical History Medical history: arthritis, osteoporosis, seizures (Perkinson's disease), other (0 left lower abdominal quadrant speaking daily and hernia containing bowel without evidence of incarceration.) Psychiatric history: no psych history - Past Surgical History Surgical History: cholecystectomy, herniorrhaphy, hysterectomy - Social History Smoking Status: Former smoker Smokeless Tobacco Status: No Alcohol use: none Drug use: none - Family History Mother Living Status: Hx Family Endocrine Disorder: Yes Medications and Allergies Advil 2 cap PO BID 09/12/16 [History] Amitriptyline [Elavil] 100 mg PO HS 09/12/16 [History] Aspirin [Lo-Dose Aspirin EC] 81 mg PO QPM 09/12/16 [History] Atenolol [Tenormin] 25 mg PO QPM 09/12/16 [History] Carboxymethylcellulose Sodium [Restore Tears] 1 drop BOTH EYES QAM 09/12/16 [ History] Omeprazole [PriLOSEC] 40 mg PO DAILY 09/12/16 [History] Sennosides/Docusate Sodium [Senna Plus] 1 each PO DAILY 09/12/16 [History] Allergies No Known Allergies Allergy (Unverified 08/01/15 13:15) All Systems Reviewed: A 10-system review of systems was performed and is negative for pertinent findings except as documented above in the HPI. Physical Exam - Constitutional Vitals: Temp Pulse Resp BP Pulse Ox 98.8 F 104 16 127/78 93 L 09/12/16 06:52 09/12/16 06:52 09/12/16 06:52 09/12/16 06:52 09/12/16 06:52 Results - Labs Result Diagrams: 09/12/16 07:36 09/12/16 07:36 Labs: Abnormal lab results WBC 15.5 K/mcL (4.3-11.1) H 09/12/16 07:36 Hgb 11.4 g/dL (11.5-15.4) L 09/12/16 07:36 Neutrophils # 12.6 K/mcL (1.6-8.9) H 09/12/16 07:36 PT 12.8 Seconds (9.4-12.1) H 09/11/16 20:17 Sodium 133 mEq/L (136-145) L 09/12/16 07:36 Potassium 4.7 mEq/L (3.5-4.5) H 09/12/16 07:36 Glucose 127 mg/dL (70-99) H 09/12/16 07:36 Calculated Osmolality 278 (280-300) L 09/12/16 07:36 H & H 09/12/16 Range/Units 07:36 Hgb 11.4 L (11.5-15.4) g/dL Hct 35.9 (35.3-44.9) % All other labs normal. Consult Discharge Plan - Plan Referrals: Chika Clemens MD [Primary Care Provider] -
[2016-09-12] MEDS ORDERED: *HR* FentaNYL (PF) 100 MCG/2 ML VIAL ONE (12:13)
[2016-09-12] MEDS ORDERED: Lidocaine -MPF 2% 2 ML VIAL ONE ×3 (12:13→14:32)
[2016-09-12] MEDS ORDERED: *HR* Propofol 200 MG/20 ML VIAL IVP ONE (12:15)
--- NOTE | 2016-09-12 13:24 | Anesthesia Evaluation PreOp ---
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 Parkinsonism maintained on Sinemet. Dementia. Anxiety/Depression maintained on Elavil) Other Medical History: GERD (maintained on Prilosec), Other (Hx of stage 4 decubitus ulcers/L-buttocks) Anesthesia History: No Prior Anesthetic Complications, Past Anesthesia (Angy, Herniorrhaphy, Hyster) Alcohol Use: none Drug use: none Medications and Allergies Amitriptyline [Elavil] 100 mg PO HS 09/12/16 [History] Aspirin [Lo-Dose Aspirin EC] 81 mg PO QPM 09/12/16 [History] Atenolol [Tenormin] 25 mg PO QPM 09/12/16 [History] Carbidopa/Levodopa 25/100 [Sinemet 25/100] 2 tab PO TID 09/12/16 [History] Carboxymethylcellulose Sodium [Restore Tears] 1 drop BOTH EYES QAM 09/12/16 [ History] Fluticasone Propionate Nasal [Flonase] 50 mcg NS BID 09/12/16 [History] Ibuprofen [Advil] 400 mg PO BID PRN 09/12/16 [History] Omeprazole [PriLOSEC] 40 mg PO DAILY 09/12/16 [History] Sennosides/Docusate Sodium [Senna Plus] 1 tab PO DAILY 09/12/16 [History] Allergies No Known Allergies Allergy (Unverified 08/01/15 13:15) - Meds/Allergy Pre-op Review Medications Reviewed: Yes Allergies Reviewed: Yes Beta Blockers on Current Med List: Yes (Atenolol) If Beta Blockers taken, Date/Time (Last Dose taken): 09/12/16 @ 1046 Anesthesia Results - Labs 09/12/16 07:36 09/12/16 07:36 Laboratory Tests 09/11/16 09/11/16 09/12/16 20:17 22:12 07:36 PT 12.8 H INR 1.2 APTT 27.0 Est GFR (Non-Af Amer) > 60 Troponin I 0.00 B-Natriuretic Peptide 09/12/16 07:36 PT INR APTT Est GFR (Non-Af Amer) Troponin I B-Natriuretic Peptide 54 Laboratory Results f Impressions Hip X-Ray 09/11/16 18:48 IMPRESSION: Left intertrochanteric fracture. D/ / 09/11/2016 19:26:54 Greg Al MD / eric Interpreting Provider: Greg Al MD Knee X-Ray 09/11/16 18:48 IMPRESSION: No acute fracture. D/ / 09/11/2016 19:27:13 Greg Al MD / eric Interpreting Provider: Greg Al MD Abdomen/Pelvis CT 09/11/16 19:12 IMPRESSION: There is perihilar ground-glass opacity, possibly atelectasis. Pneumonitis and edema are not excluded. There is left lateral subluxation of L3 on L4. There is multilevel degenerative disc disease and facet arthropathy. Acute intertrochanteric fracture of the left hip with varus deformity. Pelvic floor laxity with low position of the bladder floor and rectum. D/ / Jamar Samuels MD / Jamar Samuels MD Interpreting Provider: Jamar Samuels MD Chest CT 09/11/16 21:39 IMPRESSION: 1. Chronic elevation of the right greater than left hemidiaphragm with associated atelectasis in the right lower lobe and minimal atelectasis in the left lower lobe. 2. Acute pneumonitis is considered unlikely, as the lungs are otherwise clear. D/ / Robin Layton MD / Robin Layton MD Interpreting Provider: Robin Layton MD - Imaging EKG: pending Anesthesia Exam Vital Signs Temp Pulse Resp BP Pulse Ox 09/12/16 11:35 100.3 F H 118 16 159/99 93 L 09/12/16 06:52 98.8 F 104 16 127/78 93 L 09/12/16 04:00 97.3 F L 106 15 133/71 97 09/12/16 00:00 97.1 F L 101 15 135/75 98 09/11/16 21:26 97.1 F L 95 15 133/70 98 09/11/16 20:42 0 F L 16 136/72 09/11/16 20:33 0 F L 97 16 136/72 97 09/11/16 18:40 97.5 F L 92 18 138/61 98 Intake and Output 09/11/16 09/12/16 09/12/16 23:59 07:59 15:59 Intake Total 350 / 350 100 / 100 Output Total 700 / 700 350 / 350 Balance -350 / -350 -250 / -250 Intake: IV Fluids 350 / 350 100 / 100 Zithromax 500 mg In 250 / 250 Dextrose 5% 250 ML @ 252 mls/hr IVPB Q24H [facility]EVEN Rx#: [id number] Rocephin 1,000 MG In 100 / 100 100 / 100 Dextrose 5% (Minibag+) 100 ML 100 ML @ 200 mls/ hr IVPB DAILY STEVEN Rx#: [id number] Output: Catheter 700 / 700 350 / 350 Other: Weight 73.482 kg Height: 5'6" Weight: 162# BMI = 26 NPO (# of Hours): MNoc - HEENT Pupil (Motor): Pupils equal, EOMI Mallampati: III (Pt has severe scoliosis and limited lateral and ant/posterior neck movement. GETA may require FOI.) Teeth: Edentulous Oral Opening: Greater than 3 - INCLUSION INTERN LOC: Oriented INCLUSION INTERN Motor: Normal RUE (limited limb movement re: Scoliosis and decubitus ulcers ), Normal LUE, Normal RLE, Normal Face, Deficit LLE INCLUSION INTERN Sensory: Normal: RUE, LUE, RLE, Face, Deficit: LLE - Cardiac Rhythm: Irregular (Trigimenal sounding) Murmur: None JVD: No - Pulmonary Breath Sounds: bilateral Clear Respiratory Effort: Symmetrical Anesthesia Assess/Plan ASA Score: 4 (Parkinsonism, Dementia, HTN, Scoliosis, Pneumonia/CAP) Anes Supervising Prov Stmt: pt seen/evaluated, R&B Discussed, questions answered and consent obtained from KRAYN/Daughter Melany Sutton. [phone]. Fish Lopez MD
[2016-09-12] MEDS ORDERED: Acetaminophen IV 1,000 MG/100 ML INFUS..BTL ONE (14:07)
[2016-09-12] MEDS ORDERED: *HR* Magnesium Sulfate 1 GM/2 ML VIAL ONE (14:37)
[2016-09-12] MEDS ORDERED: Carbidopa/Levodopa 25/100 TABLET PO SCH (15:00)
[2016-09-12] MEDS ORDERED: *HR* HYDROmorphone 2 MG/ML SYRINGE ONE (15:21)
[2016-09-12] MEDS ORDERED: Dexamethasone 4 MG/ML VIAL ONE (15:22)
[2016-09-12] MEDS ORDERED: Ondansetron 4 MG/2 ML VIAL ONE (15:22)
[2016-09-12] MEDS ORDERED: *HR* Phenylephrine 10 MG/ML VIAL ONE (16:08)
--- NOTE | 2016-09-12 17:12 | Operative Note ---
Date of procedure: 09/12/16 Pre-op diagnosis: Displaced comminuted intertrochanteric fracture left proximal femur Post-op diagnosis: same Procedure: Open reduction and internal fixation/intramedullary nailing left proximal femur Implants: Synthes 10 mm x 130 degree by 170 mm TFNA with an 11 mm x 105 mm helical blade and a 40 mm x 5.0 mm distal locking screw Complications: None Anesthesia: GETA Surgeon: Martín Kaur Estimated blood loss (cc): 200 Specimen: None Condition: stable Disposition: PACU Procedure in Detail: Gross findings: Preoperative x-rays revealed a displaced comminuted intertrochanteric fracture left proximal femur with about 90 degrees of head and neck angulation from the diaphysis of the femur with an isolated avulsed lesser trochanteric fragment. A x-ray was augmented with a CT scan that revealed evidence of tremendous comminution of the fracture especially of the trochanter. Intraoperative findings were as anticipated due to the extensive comminution. The fracture was able to be reduced into an improved alignment but was noted to not distract as would be expected. This was secondary to the tremendous comminution of the trochanter which had multiple fragments and no stability. The fracture extended up postero-distal with the lesser trochanteric fragment. The fracture was able to be reduced into excellent position and stabilized with a trochanteric femoral nail. The fracture site was opened and manually reduced and very carefully the TFN was placed into the distal fragment. Minimal lateral trochanteric cortex was present. Procedure: She is taking the operating room and administered general anesthesia while on the hospital bed. Patient was then transferred to the [facility] fracture table. Left lower extremity was placed in longitudinal traction right lower extremity was placed in the well leg encinas out of harm's way. Fluoroscopy was brought in and used to guide the preliminary reduction. The fracture could be reduced into an improved position and not anatomic. Continued traction did not improve alignment. The decision was made to proceed with the intramedullary nailing with the anticipation of probably needing to open the fracture site. The hip was now prepped and draped in normal standard fashion for surgery. An incision was made above the level of trochanter dissection was carried down through the subtendinous tissue to the level of fascia danielle which was split. Dissection was carried directly down onto the tip of greater trochanter. It was noted to be markedly comminuted. Guidewire was easily passed through the comminution but was unable to be placed accurately into the distal fragment. The incision was then extended distally to the level of the fracture and the fascia danielle was split in line for exposure. Marked comminution of the greater trochanter was noted. The vastus lateralis was significantly traumatized and partially torn with some of the muscle present within the fracture site. This was removed from the fracture site which was now cleaned and now evaluation of the fracture was performed with findings as noted. The selected trochanteric femoral nail was placed on the insertion jig. The distal fragment was brought lateral and the nail was placed into the distal femoral canal and passed down until it sat at the appropriate level. The head and neck were able to be aligned in the appropriate position. The 130 degree guide was then used to place the pin and ultimately the helical blade into the femoral head. The helical blade was then locked from above. Distally the locking screw was placed with the guide. Fluoroscopy was used to verify the fracture remained well reduced and implants were in excellent position. The comminution of the greater trochanter was unable to be stabilized due to the numerous small fragments. Wounds irrigated and then closed. The vastus lateralis and some of the abductors were repaired with #1 Vicryl. The fascia danielle was closed with several [id number] stitch of #1 Vicryl followed by #2 Quill. The deep subtendinous tissue was closed with running #2 Quill. The subcutaneous tissue were closed with multiple inverted interrupted 2-0 undyed Vicryl followed by skin approximation with running 2-0 Quill. Skin glue was applied. Once it had hardened, operative foam was applied and secured. Patient is now transferred from the operating room table hospital bed and then transported to the postanesthesia care unit in stable and satisfactory condition. All sponge and needle and instrument counts are correct. No specimens were sent for pathology.
[2016-09-12] MEDS ORDERED: Ringers Solution, Lactated 1,000 ML ONE (17:30)
[2016-09-12] MEDS ORDERED: Albuterol 2.5 MG/3 ML NEBULIZER IH PRN (18:01)
[2016-09-12] MEDS ORDERED: Ondansetron 4 MG/2 ML VIAL IVP PRN (18:01)
[2016-09-12] MEDS ORDERED: Acetaminophen 325 MG TABLET PO PRN (18:01)
[2016-09-12] MEDS ORDERED: Mag Hydrox/Al Hydrox/Simeth 30 ML UDC PO PRN (18:01)
[2016-09-12] MEDS ORDERED: Ipratropium/Albuterol Neb 3 ML IH PRN (18:01)
[2016-09-12] MEDS ORDERED: MOM Conc 10 ML UD.LIQ PO PRN (18:01)
[2016-09-12] MEDS ORDERED: Naloxone 0.4 MG/ML INJ IVP PRN (18:01)
--- NOTE | 2016-09-12 18:43 | Anesthesia Evaluation Post Op ---
Date of Encounter: 09/12/16 Time of Encounter: 17:50 - Vital Signs Vital Signs: Vital Signs/O2 Sat/Glucose, Most Current Temp Pulse Resp BP Pulse Ox 09/12/16 17:55 97.5 F L 77 14 125/60 96 09/12/16 17:40 97.9 F 51 16 130/64 96 09/12/16 17:30 98.0 F 76 16 122/78 98 09/12/16 17:20 69 16 117/60 96 09/12/16 17:10 77 16 128/72 97 09/12/16 17:00 97.9 F 78 16 115/50 98 - Lungs Lungs: Clear Ascult./Percussion - Airway Airway: Non-obstructed - Cardiovascular Regular Rate - Mental Status Mental Status: Alert & Oriented, Answers Appropriately - Pain Pain Scale: 0 Pain Scale used: Numeric (1 - 10) - Nausea Vomiting Nausea Vomiting: Not Present - Hydration Hydration: NPO, Putnam catheter - Discharge PostOp Status: Transfer Patient to floor Anes Supervising Prov Stmt: PT seen/evaluated, VSS and pt has met criteria for discharge to floor. - Tye Cowart MD
[2016-09-12] MEDS: Melatonin 3 MG TABLET PO SCH (20:15)
[2016-09-12] MEDS ORDERED: Melatonin 3 MG TABLET PO SCH (21:00)
[2016-09-12] MEDS: Azithromycin 500 MG in D5% in Water 250 ML IVPB SCH (22:13)
[2016-09-13 02:51] LABS: Basophils % 0.1 %; Hematocrit 31.9 % (35.3-44.9); Hemoglobin 10.4 g/dL (11.5-15.4); Immature Granulocytes % 0.3 % (0-4); Immature Platelets 5.1 % (1.1-6.1); Lymphocytes # 1.4 K/mcL (0.6-4.6); Lymphocytes % 10.1 %; Mean Corpuscular HGB Conc 32.6 g/dL (31.6-35.5); Mean Corpuscular Volume 91.9 fL (83.0-100.0); Mean Platelet Volume 10.7 fL (9.4-12.4); Monocytes # 1.9 K/mcL (0.0-1.3); Monocytes % 13.8 %; Neutrophils # 10.5 K/mcL (1.6-8.9); Platelet Count 250 K/mcL (140-400); Red Blood Count 3.47 M/mcL (3.82-4.97); Segmented Neutrophils % 75.7 %
[2016-09-13 03:09] LABS: BUN/Creatinine Ratio 16 (6-26); Blood Urea Nitrogen 11 mg/dL (7-20); Calcium 8.5 mg/dL (8.6-10.8); Carbon Dioxide 22 mEq/L (19-29); Chloride 98 mEq/L (98-109); Glucose 127 mg/dL (70-99); Osmolality,Calculated 271 (280-300); Potassium 4.7 mEq/L (3.5-4.5); Sodium 130 mEq/L (136-145); eGFR For African Americans > 60 (> 60); eGFR For Non-African Americans > 60 (> 60)
[2016-09-13] MEDS: *HR* OxyCODONE Immed Rel 5 MG TABLET PO PRN ×3 (03:34→21:37)
[2016-09-13] MEDS: *HR* Heparin 5,000 UNIT/ML VIAL SQ SCH ×2 (06:33→18:34)
--- NOTE | 2016-09-13 11:50 | Internal Med Progress Note ---
<Jamar Rodriguez - Last Filed: 09/13/16 11:57> Time of Encounter: 10:25 - Assessment and plan (1) Intertrochanteric fracture of left femur Current Visit: Yes Status: Acute Assessment and plan: Patient with left intertrochanteric fracture. She has poor functional capacity at baseline. She will also likely be a difficult airway given her scoliosis. She reports difficulty "waking up from surgery in the past" Denies bleeding disorders or being on anticoagulation or plavix. She is on a home beta troy which I will continue. Home med list still needs to be updated. EKG is somewhat challenging to interpret given her parkinsons. Sinus rhythm Rate of 90 frequent PVCs No acute findings. She is an acceptable risk for surgery based off of the Revised cardiac risk index. will defer post operative care to orthopedic surgery. Appreciate Dr. Kaur's assistance. 09/13/16 POD #1 ORIF and nailing of left femur Patient is stable and doing well Continue pain control Cotninue postoperative care. Educated patient and daughter on IS. (2) SIRS (systemic inflammatory response syndrome) Current Visit: Yes Status: Acute Assessment and plan: She has had tachycardia and leukocytosis. WBC trending down. I do not think this is sepsis. She dose not appear toxic. She denies cough, wheeze, or increased dyspnea. Dose have some perihilar ground glass opacities on CT. Will check blood cultures and lactic acid . Continue Rocephin and azithromycin for possible CAP. (3) Kyphoscoliosis Current Visit: Yes Status: Acute (4) AKR (obstructive sleep apnea) Current Visit: Yes Status: Acute Assessment and plan: CPAP at [facility]. (5) Chronic hypoxemic respiratory failure Current Visit: Yes Status: Acute Assessment and plan: stable patient wears O2 at night. Likely from a combination of scoliosis and KAR. (6) Parkinsons disease Current Visit: Yes Status: Acute Assessment and plan: continue home medication (7) Fall Current Visit: Yes Status: Acute (8) Physical deconditioning Current Visit: Yes Status: Acute Assessment and plan: patient nearly bed bound. PT/OT (9) Leukocytosis Current Visit: Yes Status: Acute Assessment and plan: possibly reactive. trending down However she has possible CAP. continue antibiotics. (10) Hyperkalemia Current Visit: Yes Status: Acute Assessment and plan: mild stable we will continue to trend (11) Hyponatremia Current Visit: Yes Status: Acute Assessment and plan: normovolemic mild asymptomatic developing postoperatively Likely from surgical stress and IV fluids. Continue to trend If not improving will need further work up. (12) DVT prophylaxis Current Visit: Yes Status: Acute Assessment and plan: SQ heparin - Subjective Interval history: No major events overnight. Patient is POD #1 for ORIF and nailing of left femur. This AM she complains of fatigue but is otherwise doing well. she states that her pain is currently well controlled. She denies any dyspnea, cough , or wheeze. She denies any further complaints or concerns at this time. Patients daughter si also in the room and has no concerns at this time. - Constitutional Vitals: Temp Pulse Resp BP Pulse Ox 98.8 F 97 18 117/98 95 09/13/16 08:20 09/13/16 08:20 09/13/16 08:20 09/13/16 08:20 09/13/16 08:20 General appearance: Present: A&O X 3, pleasant - Head Head exam: Present: atraumatic, normal inspection, normocephalic - Eye Eye exam: Present: PERRL, conjuntiva pink, sclera anicteric Pupils: Present: PERRL - Neck Neck exam general surgery: Present: supple, trachea midline. Absent: lymphadenopathy - Respiratory Respiratory exam: Present: CTAB. Absent: accessory muscle use, rales, rhonchi, wheezes - Cardiovascular Cardiovascular exam: Present: RRR, +S1, +S2. Absent: diastolic murmur, gallop, rubs, systolic murmur - GI/Abdominal GI/Abdominal exam: Present: normal bowel sounds, soft, no peritoneal signs. Absent: distended, tenderness - Extremities Exam Extremities exam: Present: warm, radial pulses palpable and symetrical. Absent : calf tenderness, cyanotic, pedal edema Additional comments: surgical site of the left hip is clean and well dressed. warm feet with palpable pulses. - Skin Skin exam: Present: dry, intact Internal Medicine: Result - Labs CBC & Chem 7: 09/13/16 02:27 09/13/16 02:27 Labs: Short CBC 09/13/16 Range/Units 02:27 WBC 13.8 H (4.3-11.1) K/mcL Hgb 10.4 L (11.5-15.4) g/dL Hct 31.9 L (35.3-44.9) % Plt Count 250 (140-400) K/mcL Neutrophils # 10.5 H (1.6-8.9) K/mcL BMP 09/13/16 02:27 Sodium 130 L Potassium 4.7 H Chloride 98 Carbon Dioxide 22 BUN 11 Creatinine 0.69 Glucose 127 H Calcium 8.5 L - ABG Interpretation ABG results: PT/INR, D-dimer PT 12.8 Seconds (9.4-12.1) H 09/11/16 20:17 - Impressions Impressions Fluoroscopy 09/12/16 14:25 IMPRESSION: Intraprocedural fluoroscopic spot images as above. See separate procedure report for more information. D/ / Phillip Marcial MD / Phillip Marcial MD Interpreting Provider: Phillip Marcial MD - VTE Documentation of Mechanical Device: Venous foot pump, device Consult Discharge Plan - Plan Referrals: Chika Clemens MD [Primary Care Provider] - <Lazar[facility] [place] [facility] - Last Filed: 09/13/16 14:01> Date of Encounter: 09/13/16 - Constitutional Vitals: Temp Pulse Resp BP Pulse Ox 98.4 F 84 16 122/59 97 09/13/16 11:49 09/13/16 11:49 09/13/16 11:49 09/13/16 11:49 09/13/16 11:49 Internal Medicine: Result - Labs CBC & Chem 7: 09/13/16 02:27 09/13/16 02:27 Labs: Short CBC 09/13/16 Range/Units 02:27 WBC 13.8 H (4.3-11.1) K/mcL Hgb 10.4 L (11.5-15.4) g/dL Hct 31.9 L (35.3-44.9) % Plt Count 250 (140-400) K/mcL Neutrophils # 10.5 H (1.6-8.9) K/mcL BMP 09/13/16 02:27 Sodium 130 L Potassium 4.7 H Chloride 98 Carbon Dioxide 22 BUN 11 Creatinine 0.69 Glucose 127 H Calcium 8.5 L - ABG Interpretation ABG results: PT/INR, D-dimer PT 12.8 Seconds (9.4-12.1) H 09/11/16 20:17 - Impressions Impressions Fluoroscopy 09/12/16 14:25 IMPRESSION: Intraprocedural fluoroscopic spot images as above. See separate procedure report for more information. D/ / Phillip Marcial MD / Phillip Marcial MD Interpreting Provider: Phillip Marcial MD - Attending Attestation Physical therapy has recommended inpatient rehabilitation. May discharge in the morning if stable I examined this patient and my medical decision-making was reviewed with the MORTAR MIXER/PA/Advanced Practice Nurse/Resident Physician. I agree with the documented findings, disposition and treatment plan as described except to the extent set forth below.
--- NOTE | 2016-09-13 18:56 | Orthopedics Progress Note ---
Date of Encounter: 09/13/16 Time of Encounter: 18:54 Subjective Principal diagnosis: Intertrochanteric fracture left hip Interval history: 09/13/2016. Patient is postoperative day #1 from intramedullary nailing of a very complex comminuted intertrochanteric fracture of the left hip. This required open reduction to place the femoral nail. Having anticipated pain though this is managed thus far. Vital signs are stable she is afebrile. Dressing is dry. Leg is only moderately edematous. Hemoglobin is 10.4. Platelet count is normal. Impression: POD #1 ORIF/IM nailing left intertrochanteric femur fracture Recommendation: Continue with the PT and OT. Patient can be weightbearing as tolerated though I understand she will have a lot of difficulty with actual walking. She can be weightbearing with transfers. superintendent oil well services for discharge planning, patient and family agreeable to short-term rehabilitation stay. Orthopedic status stable. Objective Vital signs: Vital Signs Temp Pulse Resp BP Pulse Ox 09/13/16 15:36 98.5 F 106 18 120/76 95 09/13/16 11:49 98.4 F 84 16 122/59 97 09/13/16 08:20 98.8 F 97 18 117/98 95 09/13/16 06:40 98.7 F 92 16 120/74 96 09/13/16 03:39 98.6 F 86 18 128/74 95 09/13/16 03:34 96 09/13/16 00:18 97.7 F 78 14 118/57 96 09/12/16 21:05 97.6 F 76 18 112/67 99 09/12/16 20:00 97.4 F L 81 18 131/74 99 09/12/16 18:55 97.5 F L 81 15 130/69 99 Intake and Output 09/13/16 09/13/16 09/13/16 07:59 15:59 23:59 Intake Total 150 / 150 100 / 100 Output Total 400 / 400 200 / 200 Balance -250 / -250 -100 / -100 Intake: IV Fluids 100 / 100 Rocephin 1,000 MG In 100 / 100 Dextrose 5% (Minibag+) 100 ML 100 ML @ 200 mls/ hr IVPB DAILY [facility]EVEN Rx#: [id number] Oral 150 / 150 Output: Catheter 400 / 400 200 / 200 - Labs CBC & BMP: 09/13/16 02:27 09/13/16 02:27 Labs: Abnormal lab results WBC 13.8 K/mcL (4.3-11.1) H 09/13/16 02:27 RBC 3.47 M/mcL (3.82-4.97) L 09/13/16 02:27 Hgb 10.4 g/dL (11.5-15.4) L 09/13/16 02:27 Hct 31.9 % (35.3-44.9) L 09/13/16 02:27 Neutrophils # 10.5 K/mcL (1.6-8.9) H 09/13/16 02:27 Monocytes # 1.9 K/mcL (0.0-1.3) H 09/13/16 02:27 PT 12.8 Seconds (9.4-12.1) H 09/11/16 20:17 Sodium 130 mEq/L (136-145) L 09/13/16 02:27 Potassium 4.7 mEq/L (3.5-4.5) H 09/13/16 02:27 Glucose 127 mg/dL (70-99) H 09/13/16 02:27 Calculated Osmolality 271 (280-300) L 09/13/16 02:27 Calcium 8.5 mg/dL (8.6-10.8) L 09/13/16 02:27 - VTE Documentation of Mechanical Device: Venous foot pump, device Consult Discharge Plan - Plan Referrals: Chika Clemens MD [Primary Care Provider] -
[2016-09-13] MEDS: Melatonin 3 MG TABLET PO SCH (21:37)
[2016-09-13] MEDS: Azithromycin 500 MG in D5% in Water 250 ML IVPB SCH (21:38)
[2016-09-14] MEDS: *HR* Heparin 5,000 UNIT/ML VIAL SQ SCH (06:07)
--- NOTE | 2016-09-14 06:25 | Electrocardiograph Report ---
[place] [id number] Test Date: 2016-09-11 Pat Name: Julieta Urbina Department: 103 Room: [facility] Gender: F Returned Goods Inspector: : [id number] Requested By: Sandip Diaz Order Number: [id number] Reading MD: Yung Treviño MD Measurements Intervals [place] Rate: 94 P: HI: 0 QRS: 26 QRSD: 81 T: 19 QT: 360 QTc: 412 Interpretive Statements BASELINE ARTIFACT PROBABLE SINUS RHYTHM WITH FREQUENT PVCS IN A BIGEMINAL PATTERN Electronically Signed On 09-14-2016 6:23:26 EST by Yung Treviño MD
[2016-09-14 07:21] LABS: BUN/Creatinine Ratio 25 (6-26); Blood Urea Nitrogen 16 mg/dL (7-20); Calcium 8.4 mg/dL (8.6-10.8); Carbon Dioxide 26 mEq/L (19-29); Chloride 96 mEq/L (98-109); Glucose 125 mg/dL (70-99); Hematocrit 29.1 % (35.3-44.9); Mean Corpuscular HGB Conc 33.7 g/dL (31.6-35.5); Mean Corpuscular Hemoglobin 30.2 pg (28.0-33.3); Mean Corpuscular Volume 89.5 fL (83.0-100.0); Mean Platelet Volume 11.2 fL (9.4-12.4); Osmolality,Calculated 271 (280-300); Platelet Count 253 K/mcL (140-400); Potassium 4.5 mEq/L (3.5-4.5); Red Blood Count 3.25 M/mcL (3.82-4.97); Sodium 129 mEq/L (136-145); eGFR For African Americans > 60 (> 60); eGFR For Non-African Americans > 60 (> 60)
[2016-09-14 07:45] LABS: Hemoglobin 9.8 g/dL (11.5-15.4)
--- NOTE | 2016-09-14 13:54 | Internal Med Progress Note ---
<Jamar Rodriguez - Last Filed: 09/14/16 16:40> Date of Encounter: 09/14/16 Time of Encounter: 10:25 - Assessment and plan (1) Intertrochanteric fracture of left femur Current Visit: Yes Status: Acute Assessment and plan: Patient with left intertrochanteric fracture. She has poor functional capacity at baseline. She will also likely be a difficult airway given her scoliosis. She reports difficulty "waking up from surgery in the past" Denies bleeding disorders or being on anticoagulation or plavix. She is on a home beta troy which I will continue. Home med list still needs to be updated. EKG is somewhat challenging to interpret given her parkinsons. Sinus rhythm Rate of 90 frequent PVCs No acute findings. She is an acceptable risk for surgery based off of the Revised cardiac risk index. will defer post operative care to orthopedic surgery. Appreciate Dr. Kaur's assistance. 09/13/16 POD #1 ORIF and nailing of left femur Patient is stable and doing well Continue pain control Cotninue postoperative care. Educated patient and daughter on IS. 09/14/16 POD #2 Patient is stable and doing well Eating but has not yet had a bowel movement. Using IS. Continue pain control. Continue postoperative care. Plan to DC tomorrow to [facility] for rehab if she continues to improve tomorrow. Qualifiers: Qualified Code(s): S72.142A - Displaced intertrochanteric fracture of left femur, initial encounter for closed fracture (2) SIRS (systemic inflammatory response syndrome) Current Visit: Yes Status: Acute Assessment and plan: She is less tachycardia and has mild trend up in WBC. I think this is related to pain and post operative stress. will complete course of Rocephin and Azithromycin for suspected CAP. Today is day # 4 of antibiotics. (3) Kyphoscoliosis Current Visit: Yes Status: Acute (4) KAR (obstructive sleep apnea) Current Visit: Yes Status: Acute Assessment and plan: CPAP at [facility]. (5) Chronic hypoxemic respiratory failure Current Visit: Yes Status: Acute Assessment and plan: stable patient wears O2 at night. Likely from a combination of scoliosis and KAR. (6) Parkinsons disease Current Visit: Yes Status: Acute Assessment and plan: continue home medication (7) Fall Current Visit: Yes Status: Acute Qualifiers: Qualified Code(s): W19.XXXA - Unspecified fall, initial encounter (8) Physical deconditioning Current Visit: Yes Status: Acute Assessment and plan: patient nearly bed bound. PT/OT (9) Leukocytosis Current Visit: Yes Status: Acute Assessment and plan: likely reactive in the post operative period. mild trend up. will continue to monitor Qualifiers: Qualified Code(s): D72.829 - Elevated white blood cell count, unspecified (10) Hyperkalemia Current Visit: Yes Status: Acute Assessment and plan: resolved (11) Hyponatremia Current Visit: Yes Status: Acute Assessment and plan: normovolemic mild asymptomatic developing postoperatively Likely from surgical stress and IV fluids. Continue to trend DC IV fluids If not improving will need further work up. (12) DVT prophylaxis Current Visit: Yes Status: Acute Assessment and plan: Lovenox 30 mg SQ BID - Subjective Interval history: No majore evetns overnight. today the patient states that she is in more pain. However she contributes this to just having completed physical therapy. She denies any dyspnea, cough or wheeze. She denies any new aches or pains. She states that she is eating well. Has not had a bowel movement since [facility]. She has no further complaints or concerns at this time. - Constitutional Vitals: Temp Pulse Resp BP Pulse Ox 99.0 F 90 18 131/58 97 09/14/16 10:59 09/14/16 10:59 09/14/16 10:59 09/14/16 10:59 09/14/16 10:59 General appearance: Present: A&O X 3, pleasant Exam: General: This is a 80 Year old female who is alert and orientated to person place time and situation. No acute distress. She dose have an unusual posture secondary to her kyphoscoliosis. HEENT: Head is normocephalic atraumatic pupils are equally round reactive to light and accommodation, sclera are anicteric, nares are patent, normal external appearance of the nose and ears, t tongue is midline,Mucous membranes are moist. Heart: Regular rate and rhythm without murmur rubs or gallops, S1, S2, without S3 or S4. Capillary refills less than 2 seconds. Radial pulses are 2 out of 4 and synchronous. No JVD with inspection of the neck. Lungs: Clear to auscultation bilaterally, somewhat diminished. normal effort. no change form prior exams. Abdomen: Bowel sounds are normoactive, no bruits, abdomen is soft, no tenderness to palpation, no organomegaly noted, no guarding throughout the exam. Musculoskeletal: No gross deformity noted, Severe kyphoscoliosis present. Integument: Cool, dry, normal turgor, no edema. Psych: Alert, appropriate affect, cooperates fully with exam Extremities: There is no clubbing cyanosis or edema. Palpable pulses of the feet bilaterally. The feet are warm. She does have a well-dressed surgical site over the left hip that is non-shadowing to the dressing. Internal Medicine: Result - Labs CBC & Chem 7: 09/14/16 06:30 09/14/16 06:30 Labs: Short CBC 09/14/16 Range/Units 06:30 WBC 14.3 H (4.3-11.1) K/mcL Hgb 9.8 L (11.5-15.4) g/dL Hct 29.1 L (35.3-44.9) % Plt Count 253 (140-400) K/mcL BMP 09/14/16 06:30 Sodium 129 L Potassium 4.5 Chloride 96 L Carbon Dioxide 26 BUN 16 Creatinine 0.65 Glucose 125 H Calcium 8.4 L - ABG Interpretation ABG results: PT/INR, D-dimer PT 12.8 Seconds (9.4-12.1) H 09/11/16 20:17 - VTE Documentation of Mechanical Device: Venous foot pump, device Consult Discharge Plan - Plan Referrals: Blair Burton CNP [Partnered Physician] - 09/23/16 3:00 pm Radha Byrne MD [Partnered Physician] - 10/13/16 2:20 pm Chika Clemens MD [Primary Care Provider] - 12/17/16 3:00 pm Matheus Chopra MD [Partnered Physician] - 11/01/16 2:00 pm <Jamarcus Ramirez - Last Filed: 09/14/16 17:12> - Constitutional Vitals: Temp Pulse Resp BP Pulse Ox 98.3 F 95 16 116/70 94 L 09/14/16 14:47 09/14/16 14:47 09/14/16 14:47 09/14/16 14:47 09/14/16 14:47 Internal Medicine: Result - Labs CBC & Chem 7: 09/14/16 06:30 09/14/16 06:30 Labs: Short CBC 09/14/16 Range/Units 06:30 WBC 14.3 H (4.3-11.1) K/mcL Hgb 9.8 L (11.5-15.4) g/dL Hct 29.1 L (35.3-44.9) % Plt Count 253 (140-400) K/mcL BMP 09/14/16 06:30 Sodium 129 L Potassium 4.5 Chloride 96 L Carbon Dioxide 26 BUN 16 Creatinine 0.65 Glucose 125 H Calcium 8.4 L - ABG Interpretation ABG results: PT/INR, D-dimer PT 12.8 Seconds (9.4-12.1) H 09/11/16 20:17 - Attending Attestation I examined this patient and my medical decision-making was reviewed with the BURNER MACHINE OPERATOR/PA/Advanced Practice Nurse/Resident Physician. I agree with the documented findings, disposition and treatment plan as described except to the extent set forth below. I agree with the physical examination findings, assessment and plan as documented by Dr. Jamar Rodriguez. Patient for possible discharge to extended care facility tomorrow if stable.
[2016-09-14] MEDS: *HR* OxyCODONE Immed Rel 5 MG TABLET PO PRN ×2 (13:58→18:45)
[2016-09-14] MEDS: *HR* Enoxaparin 30 MG/0.3 ML SYRINGE SQ SCH (18:45)
--- NOTE | 2016-09-14 19:02 | Orthopedics Progress Note ---
Date of Encounter: 09/14/16 Time of Encounter: 19:00 Subjective Principal diagnosis: Intertrochanteric fracture left hip Interval history: 09/13/2016. Patient is postoperative day #1 from intramedullary nailing of a very complex comminuted intertrochanteric fracture of the left hip. This required open reduction to place the femoral nail. Having anticipated pain though this is managed thus far. Vital signs are stable she is afebrile. Dressing is dry. Leg is only moderately edematous. Hemoglobin is 10.4. Platelet count is normal. Impression: POD #1 ORIF/IM nailing left intertrochanteric femur fracture Recommendation: Continue with the PT and OT. Patient can be weightbearing as tolerated though I understand she will have a lot of difficulty with actual walking. She can be weightbearing with transfers. rehabilitation services aide for discharge planning, patient and family agreeable to short-term rehabilitation stay. Orthopedic status stable. 09/14/2016. Patient is POD #2 IM nailing of a comminuted intertrochanteric fracture of the left hip. She is doing well overall. Pain is tolerable. Vital signs stable. She is afebrile. There is some scanty drainage at the apex of her incision. Hemoglobin is 9.8. Impression: POD #2 ORIF/IM nailing left femur fracture Recommendation: Patient is stable from an orthopedics viewpoint. She can be weightbearing as tolerated on the left lower extremity with assistive devices. She can shower as long as her bio occlusive dressing is intact. We will need to continue DVT prophylaxis. She will need to follow up with me in a few weeks ' time or sooner should the need arise. Objective Vital signs: Vital Signs Temp Pulse Resp BP Pulse Ox 09/14/16 14:47 98.3 F 95 16 116/70 94 L 09/14/16 10:59 99.0 F 90 18 131/58 97 09/14/16 06:27 98.7 F 103 16 131/78 95 09/14/16 05:09 96 09/14/16 03:30 99.1 F 105 28 123/75 95 09/13/16 23:36 99.2 F 100 22 126/71 96 Intake and Output 09/14/16 09/14/16 09/14/16 07:59 15:59 23:59 Intake Total 200 / 200 Output Total 500 / 500 Balance -300 / -300 Intake: IV Fluids 100 / 100 Rocephin 1,000 MG In 100 / 100 Dextrose 5% (Minibag+) 100 ML 100 ML @ 200 mls/ hr IVPB DAILY [facility] Rx#: [id number] Oral 100 / 100 Output: Urine 500 / 500 Other: Meal Breakfast Percent of Meal Consumed 50% - Labs CBC & BMP: 09/14/16 06:30 09/14/16 06:30 Labs: Abnormal lab results WBC 14.3 K/mcL (4.3-11.1) H 09/14/16 06:30 RBC 3.25 M/mcL (3.82-4.97) L 09/14/16 06:30 Hgb 9.8 g/dL (11.5-15.4) L 09/14/16 06:30 Hct 29.1 % (35.3-44.9) L 09/14/16 06:30 Neutrophils # 10.5 K/mcL (1.6-8.9) H 09/13/16 02:27 Monocytes # 1.9 K/mcL (0.0-1.3) H 09/13/16 02:27 PT 12.8 Seconds (9.4-12.1) H 09/11/16 20:17 Sodium 129 mEq/L (136-145) L 09/14/16 06:30 Chloride 96 mEq/L (98-109) L 09/14/16 06:30 Glucose 125 mg/dL (70-99) H 09/14/16 06:30 Calculated Osmolality 271 (280-300) L 09/14/16 06:30 Calcium 8.4 mg/dL (8.6-10.8) L 09/14/16 06:30 - VTE Documentation of Mechanical Device: Venous foot pump, device Consult Discharge Plan - Plan Referrals: Blair Burton CNP [Partnered Physician] - 09/23/16 3:00 pm Radha Byrne MD [Partnered Physician] - 10/13/16 2:20 pm Chika Clemens MD [Primary Care Provider] - 12/17/16 3:00 pm Matheus Chopra MD [Partnered Physician] - 11/01/16 2:00 pm
[2016-09-14] MEDS: Melatonin 3 MG TABLET PO SCH (22:19)
[2016-09-14] MEDS: Azithromycin 500 MG in D5% in Water 250 ML IVPB SCH (22:19)
[2016-09-15] MEDS: *HR* Enoxaparin 30 MG/0.3 ML SYRINGE SQ SCH (05:50)
[2016-09-15 06:39] LABS: Basophils % 0.1 %; Eosinophils # 0.1 K/mcL (0.0-0.6); Eosinophils % 0.3 %; Hematocrit 25.5 % (35.3-44.9); Hemoglobin 8.4 g/dL (11.5-15.4); Immature Granulocytes % 0.6 % (0-4); Lymphocytes # 2.4 K/mcL (0.6-4.6); Lymphocytes % 16.2 %; Mean Corpuscular HGB Conc 32.9 g/dL (31.6-35.5); Mean Corpuscular Hemoglobin 29.6 pg (28.0-33.3); Mean Corpuscular Volume 89.8 fL (83.0-100.0); Mean Platelet Volume 11.2 fL (9.4-12.4); Monocytes # 1.5 K/mcL (0.0-1.3); Neutrophils # 10.8 K/mcL (1.6-8.9); Platelet Count 238 K/mcL (140-400); Red Blood Count 2.84 M/mcL (3.82-4.97); Segmented Neutrophils % 72.8 %
[2016-09-15 06:51] LABS: BUN/Creatinine Ratio 29 (6-26); Blood Urea Nitrogen 17 mg/dL (7-20); Calcium 8.3 mg/dL (8.6-10.8); Carbon Dioxide 24 mEq/L (19-29); Chloride 98 mEq/L (98-109); Glucose 114 mg/dL (70-99); Osmolality,Calculated 272 (280-300); Potassium 4.8 mEq/L (3.5-4.5); Sodium 130 mEq/L (136-145); eGFR For African Americans > 60 (> 60); eGFR For Non-African Americans > 60 (> 60)
--- NOTE | 2016-09-15 09:33 | Discharge Summary ---
<JenniferJamar Edlilian - Last Filed: 09/15/16 09:28> Date of Encounter: 09/15/16 Time of Encounter: 09:28 - Discharge Diagnosis (1) Intertrochanteric fracture of left femur Priority: Primary Status: Acute Qualifiers: Qualified Code(s): S72.142A - Displaced intertrochanteric fracture of left femur, initial encounter for closed fracture (2) SIRS (systemic inflammatory response syndrome) Priority: Secondary Status: Acute (3) Kyphoscoliosis Priority: Secondary Status: Acute (4) KAR (obstructive sleep apnea) Priority: Secondary Status: Acute (5) Chronic hypoxemic respiratory failure Priority: Secondary Status: Acute (6) Parkinsons disease Priority: Secondary Status: Acute (7) Fall Priority: Secondary Status: Acute Qualifiers: Qualified Code(s): W19.XXXA - Unspecified fall, initial encounter (8) Physical deconditioning Priority: Secondary Status: Acute (9) Leukocytosis Priority: Secondary Status: Acute Qualifiers: Qualified Code(s): D72.829 - Elevated white blood cell count, unspecified (10) Hyperkalemia Status: Acute (11) Hyponatremia Priority: Secondary Status: Acute (12) DVT prophylaxis Priority: Secondary Status: Acute - Discharge Medications Prescriptions: Enoxaparin [Lovenox] 30 mg SQ Q12HCO 30 Days OxyCODONE Immed Rel [Roxicodone 5 MG] 5 mg PO Q6H PRN #40 tablet PRN Reason: Moderate Pain (4-6) Sennosides/Docusate Sodium [Senna Plus] 1 tab PO DAILY 30 Days Home Medications: Amitriptyline [Elavil] 100 mg PO HS 09/12/16 [History] Aspirin [Lo-Dose Aspirin EC] 81 mg PO QPM 09/12/16 [History] Atenolol [Tenormin] 25 mg PO QPM 09/12/16 [History] Carbidopa/Levodopa 25/100 [Sinemet 25/100] 2 tab PO TID 09/12/16 [History] Carboxymethylcellulose Sodium [Restore Tears] 1 drop BOTH EYES QAM 09/12/16 [ History] Fluticasone Propionate Nasal [Flonase] 50 mcg NS BID 09/12/16 [History] Omeprazole [PriLOSEC] 40 mg PO DAILY 09/12/16 [History] Enoxaparin [Lovenox] 30 mg SQ Q12HCO 30 Days 09/15/16 [Rx] GuaiFENesin ER [Mucinex] 600 mg PO BID tbbp.12hr 09/15/16 [Rx] Ipratropium/Albuterol Neb [Duoneb] 3 ml IH [id number] PRN #0 inhsol 09/15/16 [Rx] Mag Hydrox/Al Hydrox/Simeth [Maalox] 15 ml PO Q6HR PRN #0 udc 09/15/16 [Rx] Melatonin 3 mg PO HS tablet 09/15/16 [Rx] Naloxone [Narcan] 0.4 mg IVP Q2MIN PRN #0 inj 09/15/16 [Rx] OxyCODONE Immed Rel [Roxicodone 5 MG] 5 mg PO Q6H PRN #40 tablet 09/15/16 [Rx] Sennosides/Docusate Sodium [Senna Plus] 1 tab PO DAILY 30 Days 09/15/16 [Rx] Allergies/Adverse Reactions: Allergies No Known Allergies Allergy (Unverified 08/01/15 13:15) Date of admission: 09/12/16 04:40 Primary care physician: Chika Clemens, Consults: 09/12/16 04:53 Consult to Occupational Therapy [CONS] Routine Comment: Evaluate, develop and implement POC Consult to Physical Therapy [CONS] Routine Comment: Evaluate, develop and implement POC 09/12/16 09:44 Consult to Wound Care [CONS] Routine Reason for Consult: sacral decubitus ucers Call Completed: No Discharging clinician: Jamar Rodriguez Anticipated date of discharge: 09/15/16 - Patient Status Disposition: Transfer SNF Condition: Good Functional capacity at discharge: uses cane/walker Overall status at discharge: patient is progressing back to baseline - Discharge Instructions Instructions: Open Reduction and Internal Fixation of a Hip Fracture (DC) Follow Up With: Blair Burton CNP [Partnered Physician] - 09/23/16 3:00 pm Radha Byrne MD [Partnered Physician] - 10/13/16 2:20 pm Chika Clemens MD [Primary Care Provider] - 12/17/16 3:00 pm Matheus Chopra MD [Partnered Physician] - 11/01/16 2:00 pm Additional Instructions: Take medications only as prescribed Please follow up with your PCP and orthopedic surgeon. Please call your PCP should you develop fever > 102 or increased drainage from your surgical wound. - Diet and Activity Activity: as per physical therapy Diet: low fat, low cholesterol Hospital course: Ms. Urbina is a 80 year old female with pmh of parkinsons disease and kyphoscoliosis. She is nearly bed bound at her baseline. She was admitted for a intertrochanteric fracture of the left femur. She would undergoe ORIF and femoral nailing. She has done well postoperatively. She has been afebrile. she is tolerating a diet, participating in physical therapy and having bowel movements. She is afebrile as well. her vitals are within normal limits. She dose have a postoperative anemia with Hg of 8.4 that has been trending down slowly. Postoperative leukocytosis is currently 14.9. Clinically she has done better than what I would have expected given her baseline. We will discharge her today with pain medications along with a bowel regimen. We will also continue lovenox for DVT prophylaxis as she is very high risk for developing DVT. I would consider continuing this for up to 35 days. There was questionable Pneumonia on CT of the chest. She was treated with 5 days of azithromycin and Rocephin. She is her home dose of O2 and has no pulmonary complaints today. She has had an uncomplicated hospital course. We will discharge her today to [facility] for inpatient rehab. - Time Spent with Patient Total time spent providing and/or coordinating discharge services: Greater than 30 minutes (I spent approximately 40 minutes discharging this patient) - Constitutional Vitals: Temp Pulse Resp BP Pulse Ox 98.2 F 105 20 136/70 93 L 09/15/16 06:34 09/15/16 06:34 09/15/16 06:34 09/15/16 06:34 09/15/16 06:34 General appearance: Present: A&O X 3, pleasant - Head Head exam: Present: atraumatic, normocephalic - Eye Eye exam: Present: PERRL, conjuntiva pink, sclera anicteric Pupils: Present: PERRL - Neck Neck exam general surgery: Present: supple, trachea midline. Absent: lymphadenopathy Additional comments: kyphoscoliosis present. - Respiratory Respiratory exam: Present: CTAB. Absent: accessory muscle use, rales, rhonchi, wheezes - Cardiovascular Cardiovascular exam: Present: RRR, +S1, +S2. Absent: diastolic murmur, gallop, rubs, systolic murmur - GI/Abdominal GI/Abdominal exam: Present: normal bowel sounds, soft, no peritoneal signs. Absent: distended, tenderness - Extremities Exam Extremities exam: Present: warm, radial pulses palpable and symetrical. Absent : calf tenderness, cyanotic, pedal edema Additional comments: left hip well dressed with minimal shadowing. - Skin Skin exam: Present: dry, intact - VTE Documentation of Mechanical Device: Venous foot pump, device <Jamarcus Ramirez - Last Filed: 09/16/16 07:48> Date of admission: 09/12/16 04:40 Primary care physician: Chika Clemens, Consults: 09/12/16 04:53 Consult to Occupational Therapy [CONS] Routine Comment: Evaluate, develop and implement POC Consult to Physical Therapy [CONS] Routine Comment: Evaluate, develop and implement POC 09/12/16 09:44 Consult to Wound Care [CONS] Routine Reason for Consult: sacral decubitus ucers Call Completed: No Hospital course: Ms. Urbina is a 80 year old female - Time Spent with Patient Total time spent providing and/or coordinating discharge services: - Constitutional Vitals: Temp Pulse Resp BP Pulse Ox 98.4 F 83 18 125/76 100 09/15/16 10:40 09/15/16 10:40 09/15/16 10:40 09/15/16 10:40 09/15/16 10:40 - Attending Attestation I examined this patient and my medical decision-making was reviewed with the STRIPPER PRELIMINARY/PA/Advanced Practice Nurse/Resident Physician. I agree with the documented findings, disposition and treatment plan as described except to the extent set forth below. Stable, for discharge to snf today. Follow up with PCP. Jamarcus Ramirez
--- NOTE | 2016-09-15 09:48 | Physician Discharge Referral ---
ExtendedCare Referral Info Transfer To: F Provider in Charge after Transfer: PCP Institutional Level of Care: Skilled - Diagnosis (1) Intertrochanteric fracture of left femur Status: Acute (2) SIRS (systemic inflammatory response syndrome) Status: Acute (3) Kyphoscoliosis Status: Acute (4) KAR (obstructive sleep apnea) Status: Acute (5) Chronic hypoxemic respiratory failure Status: Acute (6) Parkinsons disease Status: Acute (7) Fall Status: Acute (8) Physical deconditioning Status: Acute (9) Leukocytosis Status: Acute (10) Hyperkalemia Status: Acute (11) Hyponatremia Status: Acute (12) DVT prophylaxis Status: Acute - Transfer Medications Prescriptions: Enoxaparin [Lovenox] 30 mg SQ Q12HCO 30 Days OxyCODONE Immed Rel [Roxicodone 5 MG] 5 mg PO Q6H PRN #40 tablet PRN Reason: Moderate Pain (4-6) Sennosides/Docusate Sodium [Senna Plus] 1 tab PO DAILY 30 Days Home Medications: Amitriptyline [Elavil] 100 mg PO HS 09/12/16 [History] Aspirin [Lo-Dose Aspirin EC] 81 mg PO QPM 09/12/16 [History] Atenolol [Tenormin] 25 mg PO QPM 09/12/16 [History] Carbidopa/Levodopa 25/100 [Sinemet 25/100] 2 tab PO TID 09/12/16 [History] Carboxymethylcellulose Sodium [Restore Tears] 1 drop BOTH EYES QAM 09/12/16 [ History] Fluticasone Propionate Nasal [Flonase] 50 mcg NS BID 09/12/16 [History] Omeprazole [PriLOSEC] 40 mg PO DAILY 09/12/16 [History] Enoxaparin [Lovenox] 30 mg SQ Q12HCO 30 Days 09/15/16 [Rx] GuaiFENesin ER [Mucinex] 600 mg PO BID tbbp.12hr 09/15/16 [Rx] Ipratropium/Albuterol Neb [Duoneb] 3 ml IH [id number] PRN #0 inhsol 09/15/16 [Rx] Mag Hydrox/Al Hydrox/Simeth [Maalox] 15 ml PO Q6HR PRN #0 udc 02/22/17 [Rx] Melatonin 3 mg PO HS tablet 09/15/16 [Rx] Naloxone [Narcan] 0.4 mg IVP Q2MIN PRN #0 inj 09/15/16 [Rx] OxyCODONE Immed Rel [Roxicodone 5 MG] 5 mg PO Q6H PRN #40 tablet 09/15/16 [Rx] Sennosides/Docusate Sodium [Senna Plus] 1 tab PO DAILY 30 Days 09/15/16 [Rx] Allergies/Adverse Reactions: Allergies No Known Allergies Allergy (Unverified 08/01/15 13:15) - Respiratory Orders Smoking Cessation: Smoking cessation has been advised. For more information, call the [place] Tobacco Quit Line at 3-015-AAPH-NOW. - Lab Orders Lab Orders: CBC (Please repeat in on 09/17/16 to follow up with WBC and Hg.) - Ancillary Orders May use pressure relief devices daily prn, May consult with Dentist, Academic Guidance Specialist, Registry Nurse PRN - Advance Directives Living Will: No Power of Plumbing Foreman: No Code Status: Full Code - Mobility Orders Other (with assistance.) - Rehabiliation Orders Rehab Potential: Poor Rehab Orders: Evaluation for Physical Therapy, Evaluation for Occupational Therapy - Treatments Skin tear care topically daily PRN per policy (wound care for decubitus ulcers) - Diet Orders No Added Salt (ROBERT) CERTIFICATION: I certify that the transfer of the above named patient to an Extended Care Facility is necessary for the continuing treatment of the diagnosis listed. The above information is true and accurate reflection of patient's current condition. Confidential - Redisclosure prohibited without a patient's written consent.
[2016-09-15 10:43] VITALS: BP 125/76
== END 2016-09-15 12:50 | DRG 480 ==
LOC: EMEROO 18:38 → 3NENU 18:38 → SUATTDRO 09-12 04:40
PROVIDERS: ADMIT Internal Medicine; ATTEND Internal Medicine

== ENCOUNTER 2018-12-02 20:49 | Inpatient (IN) ==
--- NOTE | 2018-12-02 21:11 | Emergency Department Note ---
Disposition Clinical Impression: Perirectal fistula Sepsis Qualifiers: Sepsis type: sepsis due to unspecified organism Qualified Code(s): A41.9 - Sepsis, unspecified organism Decubitus ulcer Qualifiers: Pressure injury location: sacral region Pressure injury stage: unspecified pressure injury stage Qualified Code(s): L89.159 - Pressure ulcer of sacral region, unspecified stage Disposition: Admitted As Inpatient Condition: Good Referrals: NONE,PCP [Non-Partnered Physician] - Forms: ED Satisfaction Letter, Work/School Release Time of Disposition: 00:33 General Adult HPI - General Chief complaint: ED General Medical Stated complaint: Infected bedsore Time Seen by Provider: 12/02/18 20:55 Source: patient Limitations: no limitations Nursing Notes Reviewed: Yes Vital Signs Reviewed: Yes - History of Present Illness HPI Narrative: Ms. Urbina is a 83 year old female unable to speak, unable to ambulate due to unspecified palsy and rapidly progressive parkinson disease, htn, and scoliosis who presents to ED with caregivers with complaint of bed sore that has grown in size and red and firm for the last 2 days. Reports that she developed a fever to 102F today and has not given any medications. As far as caregivers know, no additional symptoms including no sweats, vomiting, difficulty breathing, abdominal pain, changes in bowel movements, changes in bladder habits, or w eakness. Pain Scale: 0 - Related Data Home Medications Medication Instructions Recorded Confirmed Amitriptyline [Elavil] 100 mg PO HS 09/12/16 02/06/18 Aspirin [Lo-Dose Aspirin EC] 81 mg PO QPM 09/12/16 02/06/18 Atenolol [Tenormin] 25 mg PO QPM 09/12/16 02/06/18 Carbidopa/Levodopa 25/100 [Sinemet 2 tab PO TID 09/12/16 02/06/18 25/100] Carboxymethylcellulose Sodium 1 drop BOTH EYES QAM 09/12/16 02/06/18 [Restore Tears] Fluticasone Propionate Nasal 50 mcg NS BID 09/12/16 02/06/18 [Flonase] Omeprazole [PriLOSEC] 40 mg PO DAILY 09/12/16 02/06/18 Previous Rx's Medication Instructions Recorded GuaiFENesin ER [Mucinex] 600 mg PO BID tbbp.12hr 09/15/16 Ipratropium/Albuterol Neb [Duoneb] 3 ml IH [id number] PRN #0 inhsol 09/15/16 Mag Hydrox/Al Hydrox/Simeth 15 ml PO Q6HR PRN #0 udc 09/15/16 [Maalox] Melatonin 3 mg PO HS tablet 09/15/16 Sennosides/Docusate Sodium [Senna 1 tab PO DAILY 30 Days tablet 09/15/16 Plus] Allergies Allergy/AdvReac Type Severity Reaction Status Date / Time No Known Allergies Allergy Unverified 12/02/18 20:56 Review of Systems: As Per HPI Past Medical History - Past Medical History Medical history: Reports: GERD, hypertension, osteoporosis Surgical history: Reports: cholecystectomy, herniorrhaphy, hysterectomy Psychiatric history: Reports: no psych history ORTHOTIST history: Reports: no ORTHOTIST history - Social History Smoking Status: Never smoker Smokeless Tobacco Status: No Alcohol use: Reports: none Drug use: Reports: none Physical Exam - General Limitations: other (unable to speak and follow commands well due to neurological disease) General appearance: alert, in no apparent distress - Head Head exam: atraumatic, normocephalic, normal inspection - Eye Eye exam: Present: normal appearance - ENT ENT exam: normal exam, mucous membranes moist - Neck Neck exam: Present: normal inspection, full ROM, trachea midline - Chest Chest inspection: Present: normal inspection, symmetric chest wall rise - Respiratory Respiratory exam: Present: normal lung sounds bilaterally - Cardiovascular Cardiovascular exam: Present: regular rate, normal rhythm, normal heart sounds - Abdominal Exam Abdominal exam: Present: soft, Non-Tender, normal bowel sounds. Absent: guarding, rebound, rigidity - Extremities Exam Extremities exam: Present: normal inspection, full ROM, normal capillary refill. Absent: tenderness, pedal edema (wearing compression stockings) - Back Exam Back exam: Present: other (scoliosis, small 3mm skin sore just right of superior gluteal fold and 2cm red area with induration and firmness with a 1cm nodular area just superior midline of gluteal fold withou drainage and skin sloughing. ) - Neurological Exam Neurological exam: Present: alert - Skin Skin exam: Present: warm, dry, intact, normal color, other (except as noted above) Course - Reevaluation(s) Reevaluation #1: Initial labs and imaging returned. Still meeting sepsis criteria, source likely perianal fistula vs possible uti. Zosyn started, add vancomycin. Spoke with Dr. Suárez Surgery, admit to Hospitalist and will see patient later. Time: 23:53 Vital Signs Temperature 100.9 F H 12/02/18 20:56 Pulse Rate 76 12/02/18 20:56 Respiratory Rate 18 12/02/18 20:56 Blood Pressure 124/48 12/02/18 20:56 O2 Sat by Pulse Oximetry 92 12/02/18 20:56 Temperature 98.1 F 12/02/18 22:25 Pulse Rate 107 12/03/18 00:26 Respiratory Rate 16 12/03/18 00:26 Blood Pressure 134/68 12/03/18 00:26 O2 Sat by Pulse Oximetry 95 12/03/18 00:26 Oxygen Delivery Oxygen Delivery Nasal Cannula Medical Decision Making - MDM Narrative Medical decision making narrative: 83 year old female unable to speak for herself at this time due to rapidly progressive neurological disease with bedsore and now meeting SIRS criteria with tachycardia of 130bpm and fever. Sepsis workup ordered. Differrential includes but not limited to pneumonia, uti, infected bedsore, osteomyelitis. Start IV fluids and labs and imaging ordered. - Lab Data Result diagrams: 12/02/18 22:09 12/02/18 22:09 Lab Results 12/02/18 12/02/18 12/02/18 Range/Units 22:09 22:09 22:09 WBC 14.2 H (4.3-11.1) K/mcL RBC 3.90 (3.82-4.97) M/mcL Hgb 11.6 (11.5-15.4) g/dL Hct 35.5 (35.3-44.9) % MCV 91.0 (83.0-100.0) fL MCH 29.7 (28.0-33.3) pg MCHC 32.7 (31.6-35.5) g/dL RDW 13.2 (11.5-14.5) % Plt Count 225 (140-400) K/mcL MPV 11.2 (9.4-12.4) fL Immature Gran % 0.5 (0-4) % Seg Neutrophils % 90.2 % Lymphocytes % 3.1 % Monocytes % 5.8 % Eosinophils % 0.2 % Basophils % 0.2 % Neutrophils # 12.8 H (1.6-8.9) K/mcL Lymphocytes # 0.4 L (0.6-4.6) K/mcL Monocytes # 0.8 (0.0-1.3) K/mcL Eosinophils # 0.0 (0.0-0.6) K/mcL Basophils # 0.0 (0.0-0.2) K/mcL Sodium 136 (136-145) mEq/L Potassium 4.0 (3.5-5.1) mEq/L Chloride 103 (98-107) mEq/L Carbon Dioxide 24 (23-29) mEq/L BUN 23 (8-23) mg/dL Creatinine 0.63 (0.60-1.20) mg/dL Est GFR ( Amer) > 60 (> 60) Est GFR (Non-Af Amer) > 60 (> 60) BUN/Creatinine Ratio 37 H (6-26) Glucose 161 H (70-105) mg/dL Calculated Osmolality 289 (280-300) Lactic Acid 1.1 (0.5-2.2) mmol/L Calcium 9.0 (8.6-10.3) mg/dL Total Bilirubin 0.4 (0.3-1.0) mg/dL Direct Bilirubin 0.1 (0.0-0.2) mg/dL Indirect Bilirubin 0.3 (0.0-1.2) mg/dL AST 55 H (13-39) Units/L ALT 12 (7-52) Units/L Alkaline Phosphatase 102 (34-104) Units/L Troponin I < 0.03 (< 0.04) ng/mL Serum Total Protein 7.0 (6.4-8.9) g/dL Albumin 3.8 (3.5-5.7) g/dL Globulin 3.2 (2.4-3.5) g/dL Albumin/Globulin Ratio 1.2 (1.1-2.2) Urine Color (Yellow) Urine Clarity (Clear) Urine pH (5.0-8.0) pH Units Ur Specific [place] (1.010-1.025) Urine Protein (Neg-Trace) mg/dL Urine Glucose (UA) (Normal) mg/dL Urine Ketones (Negative) mg/dL Urine Blood (Negative) Urine Nitrite (Negative) Urine Bilirubin (Negative) Urine Urobilinogen (Normal) mg/dL Ur Leukocyte Esterase (Negative) 12/03/18 Range/Units 00:00 WBC (4.3-11.1) K/mcL RBC (3.82-4.97) M/mcL Hgb (11.5-15.4) g/dL Hct (35.3-44.9) % MCV (83.0-100.0) fL MCH (28.0-33.3) pg MCHC (31.6-35.5) g/dL RDW (11.5-14.5) % Plt Count (140-400) K/mcL MPV (9.4-12.4) fL Immature Gran % (0-4) % Seg Neutrophils % % Lymphocytes % % Monocytes % % Eosinophils % % Basophils % % Neutrophils # (1.6-8.9) K/mcL Lymphocytes # (0.6-4.6) K/mcL Monocytes # (0.0-1.3) K/mcL Eosinophils # (0.0-0.6) K/mcL Basophils # (0.0-0.2) K/mcL Sodium (136-145) mEq/L Potassium (3.5-5.1) mEq/L Chloride (98-107) mEq/L Carbon Dioxide (23-29) mEq/L BUN (8-23) mg/dL Creatinine (0.60-1.20) mg/dL Est GFR ( Amer) (> 60) Est GFR (Non-Af Amer) (> 60) BUN/Creatinine Ratio (6-26) Glucose (70-105) mg/dL Calculated Osmolality (280-300) Lactic Acid (0.5-2.2) mmol/L Calcium (8.6-10.3) mg/dL Total Bilirubin (0.3-1.0) mg/dL Direct Bilirubin (0.0-0.2) mg/dL Indirect Bilirubin (0.0-1.2) mg/dL AST (13-39) Units/L ALT (7-52) Units/L Alkaline Phosphatase (34-104) Units/L Troponin I (< 0.04) ng/mL Serum Total Protein (6.4-8.9) g/dL Albumin (3.5-5.7) g/dL Globulin (2.4-3.5) g/dL Albumin/Globulin Ratio (1.1-2.2) Urine Color Yellow (Yellow) Urine Clarity Clear (Clear) Urine pH 6.0 (5.0-8.0) pH Units Ur Specific [place] > 1.030 H (1.010-1.025) Urine Protein 30 H (Neg-Trace) mg/dL Urine Glucose (UA) Normal (Normal) mg/dL Urine Ketones Trace H (Negative) mg/dL Urine Blood Negative (Negative) Urine Nitrite Negative (Negative) Urine Bilirubin Negative (Negative) Urine Urobilinogen Normal (Normal) mg/dL Ur Leukocyte Esterase Negative (Negative) - EKG Data EKG #2 EKG attestation: Yes I reviewed and interpreted this EKG. EKG results narrative: Significant artifact due to tremors, rate 130, no st elevations or depression, of discernible complexes, appears unchanged from previous
[2018-12-02] MEDS ORDERED: Isovue-370 500 ML BOTTLE IVP ONE (21:18)
[2018-12-02] MEDS ORDERED: Acetaminophen 325 MG TABLET PO ONE (21:20)
[2018-12-02] MEDS ORDERED: Piperacillin/Tazobactam 3.375 GM in Water for inj. (sterile) 20 ML 20 ML IVP ONE (21:46)
--- NOTE | 2018-12-02 21:55 | Emergency Department Note ---
Disposition Clinical Impression: Sepsis Qualifiers: Sepsis type: sepsis due to unspecified organism Qualified Code(s): A41.9 - Sepsis, unspecified organism Disposition: Admitted As Inpatient Condition: Good Forms: ED Satisfaction Letter, Work/School Release General Adult HPI - General Chief complaint: ED General Medical Stated complaint: Infected bedsore Time Seen by Provider: 12/02/18 20:55 Source: patient Limitations: other (unable to speak and follow commands well due to neurological disease) - History of Present Illness Pain Scale: 0 - Related Data Home Medications Medication Instructions Recorded Confirmed Amitriptyline [Elavil] 100 mg PO HS 09/12/16 02/06/18 Aspirin [Lo-Dose Aspirin EC] 81 mg PO QPM 09/12/16 02/06/18 Atenolol [Tenormin] 25 mg PO QPM 09/12/16 02/06/18 Carbidopa/Levodopa 25/100 [Sinemet 2 tab PO TID 09/12/16 02/06/18 25/100] Carboxymethylcellulose Sodium 1 drop BOTH EYES QAM 09/12/16 02/06/18 [Restore Tears] Fluticasone Propionate Nasal 50 mcg NS BID 09/12/16 02/06/18 [Flonase] Omeprazole [PriLOSEC] 40 mg PO DAILY 09/12/16 02/06/18 Previous Rx's Medication Instructions Recorded GuaiFENesin ER [Mucinex] 600 mg PO BID tbbp.12hr 09/15/16 Ipratropium/Albuterol Neb [Duoneb] 3 ml IH [id number] PRN #0 inhsol 09/15/16 Mag Hydrox/Al Hydrox/Simeth 15 ml PO Q6HR PRN #0 udc 09/15/16 [Maalox] Melatonin 3 mg PO HS tablet 09/15/16 Sennosides/Docusate Sodium [Senna 1 tab PO DAILY 30 Days tablet 09/15/16 Plus] Allergies Allergy/AdvReac Type Severity Reaction Status Date / Time No Known Allergies Allergy Unverified 12/02/18 20:56 Past Medical History - Past Medical History Medical history: Reports: GERD, hypertension, osteoporosis Surgical history: Reports: cholecystectomy, herniorrhaphy, hysterectomy Psychiatric history: Reports: no psych history CUT OFF SAWYER history: Reports: no CUT OFF SAWYER history - Social History Smoking Status: Never smoker Smokeless Tobacco Status: No Alcohol use: Reports: none Drug use: Reports: none Physical Exam - General Limitations: other (unable to speak and follow commands well due to neurological disease) General appearance: alert, in no apparent distress Course Vital Signs Temperature 100.9 F H 12/02/18 20:56 Pulse Rate 76 12/02/18 20:56 Respiratory Rate 18 12/02/18 20:56 Blood Pressure 124/48 12/02/18 20:56 O2 Sat by Pulse Oximetry 92 12/02/18 20:56 Temperature 100.9 F H 12/02/18 20:56 Pulse Rate 76 12/02/18 20:56 Respiratory Rate 18 12/02/18 20:56 Blood Pressure 124/48 12/02/18 20:56 O2 Sat by Pulse Oximetry 92 12/02/18 20:56 Oxygen Delivery Oxygen Delivery Room Air Attestation Statement - Attestation Attestation: I examined this patient and my medical decision-making was reviewed with the Resident Physician. I agree with the documented findings, disposition and treatment plan as described except to the extent set forth below. SEPSIS ALERT: 83 year old female with parkinsons disease with evovling bed sore that is becoming more erythematous and raised and is febrile and tachycardiac and otherwise a poor historian and not had any recent hospitlaizations or [facility] admissions and has daugther at bedside. Rena will need sepsis workup at this time with 30ml.kg therapy and we will start zosyn. no previous historyof MRSA. Patient casey source is from her bed sore. WE will btain a CT to rule out abscuess. Admit to medicine with consideration of surigcal consult as needed
[2018-12-02] MEDS: 0.9 % Sodium Chloride 1,000 ML IVC SCH (22:07)
[2018-12-02 22:48] LABS: Alanine Aminotransferase 12 Units/L (7-52); Albumin 3.8 g/dL (3.5-5.7); Albumin/Globulin Ratio 1.2 (1.1-2.2); Alkaline Phosphatase 102 Units/L (34-104); Aspartate Amino Transferase 55 Units/L (13-39); BUN/Creatinine Ratio 37 (6-26); Bilirubin,Direct 0.1 mg/dL (0.0-0.2); Bilirubin,Indirect 0.3 mg/dL (0.0-1.2); Bilirubin,Total 0.4 mg/dL (0.3-1.0); Blood Urea Nitrogen 23 mg/dL (8-23); Carbon Dioxide 24 mEq/L (23-29); Chloride 103 mEq/L (98-107); Globulin 3.2 g/dL (2.4-3.5); Glucose 161 mg/dL (70-105); Osmolality,Calculated 289 (280-300); Sodium 136 mEq/L (136-145); Troponin I < 0.03 ng/mL (< 0.04); eGFR For Non-African Americans > 60 (> 60)
[2018-12-02 23:25] LABS: Basophils % 0.2 %; Eosinophils % 0.2 %; Hematocrit 35.5 % (35.3-44.9); Hemoglobin 11.6 g/dL (11.5-15.4); Immature Granulocytes % 0.5 % (0-4); Lymphocytes # 0.4 K/mcL (0.6-4.6); Lymphocytes % 3.1 %; Mean Corpuscular HGB Conc 32.7 g/dL (31.6-35.5); Mean Corpuscular Hemoglobin 29.7 pg (28.0-33.3); Mean Platelet Volume 11.2 fL (9.4-12.4); Monocytes # 0.8 K/mcL (0.0-1.3); Monocytes % 5.8 %; Neutrophils # 12.8 K/mcL (1.6-8.9); Platelet Count 225 K/mcL (140-400); Red Cell Distribution Width 13.2 % (11.5-14.5); Segmented Neutrophils % 90.2 %
[2018-12-03 00:22] LABS: Bilirubin,Urine Negative (Negative); Clarity,Urine Clear (Clear); Color,Urine Yellow (Yellow); Glucose,Urine (UA) Normal (Normal); Ketones,Urine Trace mg/dL (Negative)
[2018-12-03 00:23] LABS: Blood,Urine Negative (Negative); Leukocyte Esterase,Urine Negative (Negative); Nitrite,Urine Negative (Negative); Protein,Urine 30 mg/dL (Neg-Trace); Specific Gravity,Urine > 1.030 (1.010-1.025); Urobilinogen,Urine Normal (Normal)
[2018-12-03] MEDS: 0.9 % Sodium Chloride 1,000 ML IVC SCH ×4 (00:44→11:43)
[2018-12-03] MEDS ORDERED: Ondansetron 4 MG/2 ML VIAL IVP PRN (00:56)
[2018-12-03] MEDS ORDERED: Naloxone 0.4 MG/ML INJ IVP PRN (00:56)
--- NOTE | 2018-12-03 01:08 | Internal Med History&Physical ---
Date of Encounter: 12/03/18 Time of Encounter: 01:04 Internal Medicine - H&P: HPI Chief complaint: Sacral ulcer History of present illness: Ms. Urbina is a 83 year old female with a past medical history of hypertension, arthritis, severe Parkinson's with inability to ambulate, and history of sacral ulcers, who presented to the ED with caregivers due to complaints of bedsores that have progressively worsened over the past 2 days. History obtained from records in the ED as patient is minimally verbal and no family members were at bedside during my initial assessment. Reports that she developed a fever to 102F today. Patient was brought in for further evaluation. No additional symptoms reported including chills, vomiting, difficulty breathing, abdominal pain, ch anges in bowel movements, changes in bladder habits, or weakness. On arrival patient found to have a fever of 100.9. Patient otherwise hemodynamically stable with mild occasional tachycardia. Laboratory workup notable for a leukocytosis of 14.2. Normal lactic acid. Examination of the sacral region showed small 3mm skin sore just right of superior gluteal fold and 2cm red area with induration and firmness with a 1cm nodular area just superior midline of gluteal fold withou drainage and skin sloughing. CT scan of the abdomen and pelvis showed subcutaneous and skin edema and thickening overlying the sacrum and coccyx without fluid collection or bony erosion. Perianal soft tissue thickening with several gas bubbles within the thickened soft tissues concerning for perianal fistula. Patient received fluid bolus in the ED and was started on Vanco and Zosyn. Blood cultures obtained. Surgery consulted and will see the patient in the morning. Past Med Surg Social Fam HX - Past Medical History Medical history: GERD, hypertension, osteoporosis Additional medical history: Parkinson, Cellulits, Hiatal hernia, hypoxia, [place], Tinnitis, colon polyps, Diverticular disease, tinnitus, PVD, Scoliosis Psychiatric history: no psych history - Past Surgical History Surgical History: cholecystectomy, herniorrhaphy, hysterectomy Additional surgical history: Back sx, left eye cataract, hernia, tubal ligation, partial hysterectomy, broke left hip. - Social History Smoking Status: Never smoker Smokeless Tobacco Status: No Alcohol use: none Drug use: none - Family History Father Adopted: No Family Member Ethnicity: Non- Twin of Family Member: Yes, Fraternal Living Status: Hx Family Cardiac Disorders: Yes Hx Family Respiratory Disorders: No Hx Family Cancer: No Hx Family GI Disorders: No Hx Family Endocrine Disorder: No Hx Family Neuromuscular Disorders: No Hx Family Neurologic Disorders: No Hx Family HEENT Disorders: No Hx Family Autoimmune Disorders: No Mother Adopted: No Family Member Ethnicity: Non- Living Status: Hx Family Cardiac Disorders: No Hx Family Respiratory Disorders: No Hx Family Cancer: No Hx Family GI Disorders: No Hx Family Endocrine Disorder: Yes Hx Family Neuromuscular Disorders: No Hx Family Neurologic Disorders: No Hx Family HEENT Disorders: No Hx Family Autoimmune Disorders: No Internal Medicine - H&P: Meds Amitriptyline [Elavil] 100 mg PO HS 09/12/16 [History] Aspirin [Lo-Dose Aspirin EC] 81 mg PO DAILY 09/12/16 [History] Atenolol [Tenormin] 25 mg PO QPM 09/12/16 [History] Carbidopa/Levodopa 25/100 [Sinemet 25/100] 1.5 tab PO TID 09/12/16 [History] Fluticasone Propionate Nasal [Flonase] 2 spray NS DAILY 09/12/16 [History] Omeprazole [PriLOSEC] 40 mg PO DAILY 09/12/16 [History] Sennosides/Docusate Sodium [Senna Plus] 1 tab PO DAILY 30 Days tablet 09/15/16 [Rx] Cetirizine HCl 10 mg PO DAILY 12/03/18 [History] DiphenhydraMINE [Benadryl] 50 mg PO HS 12/03/18 [History] Ibuprofen [Ibu-200] 200 mg PO Q6H PRN 12/03/18 [History] Lactobacillus Combination No.9 [Adult 50 + Probiotic] 1 cap PO DAILY 12/03/18 [History] Peg 400/Hypromellose/Glycerin [Sm Dry Eye Relief Eye Drops] 1 drop BOTH EYES DAILY PRN 12/03/18 [History] Allergy/AdvReac Type Severity Reaction Status Date / Time No Known Allergies Allergy Unverified 12/03/18 17:19 All Systems PM: A 10-system review of systems was performed and is negative for pertinent findings except as documented above in the HPI. - Constitutional Constitutional: no chills, no fever(s), no night sweats - EENT Eyes: no change in vision, no discharge, no pain, no photophobia Ears: no ear discharge, no ear pain, no tinnitus Nose, mouth and throat: no dysphagia, no nasal discharge, no neck pain, no sore throat - Cardiovascular Cardiovascular ROS IM: no chest pain, no diaphoresis, no dyspnea, no lightheadedness, no palpitations, no syncope - Respiratory Respiratory: no cough, no dyspnea, no wheezing, no excessive phlegm production - Gastrointestinal Gastrointestinal: no abdominal pain, no diarrhea, no hematemesis, no hematochezia, no melena, no nausea, no vomiting - Genitourinary Genitourinary: no change in urinary stream, no dysuria, no flank pain, no hematuria - Musculoskeletal Musculoskeletal ROS IM: no numbness, no tingling - Integumentary Integumentary IM: no rash, no unusual bruising - Neurological Neurological ROS: no confusion, no convulsions, no focal weakness, no numbness, no tingling, no tremor(s) - Hematologic/Lymphatic Hematologic/Lymphatic: no easy bruising - Constitutional Vitals: Temp Pulse Resp BP Pulse Ox 98.1 F 107 16 134/68 95 12/02/18 22:25 12/03/18 00:26 12/03/18 00:26 12/03/18 00:26 12/03/18 00:26 Exam: General: Alert and oriented 1 Skin: small 3mm skin sore just right of superior gluteal fold and 2cm red area with induration and firmness with a 1cm nodular area just superior midline of gluteal fold withou drainage and skin sloughing. HEENT:EOM, pupils equal, round and reactive. Cardiovascular:Normal S1 & S2, no rubs, murmurs or gallops. No JVD. Pulse regular. Lungs:Normal breath sounds, no wheezes or crackles. Abdomen:Soft, non-tender, no rigidity. Extremities:No deformity, no edema or tenderness, no joint swelling or clubbing. Neurological:Normal cognition and motor skills. Pulses:Carotid and radial pulses normal +2. Rest of the physical exam is non contributory Internal Med - H&P Results - Labs CBC & Chem 7: 12/03/18 10:58 12/03/18 10:58 Labs: Short CBC 12/02/18 Range/Units 22:09 WBC 14.2 H (4.3-11.1) K/mcL Hgb 11.6 (11.5-15.4) g/dL Hct 35.5 (35.3-44.9) % Plt Count 225 (140-400) K/mcL Neutrophils # 12.8 H (1.6-8.9) K/mcL BMP 12/02/18 22:09 Sodium 136 Potassium 4.0 Chloride 103 Carbon Dioxide 24 BUN 23 Creatinine 0.63 Glucose 161 H Calcium 9.0 Cardiac Enzymes 12/02/18 Range/Units 22:09 Troponin I < 0.03 (< 0.04) ng/mL Liver Function 12/02/18 Range/Units 22:09 Total Bilirubin 0.4 (0.3-1.0) mg/dL Direct Bilirubin 0.1 (0.0-0.2) mg/dL AST 55 H (13-39) Units/L ALT 12 (7-52) Units/L Alkaline Phosphatase 102 (34-104) Units/L Albumin 3.8 (3.5-5.7) g/dL Urine 12/03/18 Range/Units 00:00 Urine Color Yellow (Yellow) Urine Clarity Clear (Clear) Urine pH 6.0 (5.0-8.0) pH Units Ur Specific [place] > 1.030 H (1.010-1.025) Urine Protein 30 H (Neg-Trace) mg/dL Urine Glucose (UA) Normal (Normal) mg/dL - Impressions ITS Impressions Abdomen/Pelvis CT 12/02/18 21:18 IMPRESSION: Subcutaneous and skin edema and thickening overlying the sacrum and coccyx without fluid collection or associated bony erosion identified. Perianal soft tissue thickening with several gas bubbles within the thickened soft tissues but no fluid collection. This may indicate perianal fistula. D/ / Neo Wilson MD / Neo Wilson MD Interpreting Provider: Neo Wilson MD Chest X-Ray 12/02/18 21:20 IMPRESSION: Central vascular congestion without overt pulmonary edema similar to prior exam. Difficult to exclude perihilar airspace disease although this is favored to represent bronchovascular crowding. Unchanged elevated right hemidiaphragm. D/ / Rick Ornelas / Rick Ornelas Interpreting Provider: Rick Ornelas - Assessment and Plan (1) Sepsis Current Visit: Yes Status: Acute Assessment and plan: Patient presents with fever and leukocytosis in the setting of sacral decubital ulcer on possible perianal fistula. Lactic acid within normal limits. Patient received 1 L fluid bolus in the ED. Patient otherwise hemodynamically stable. Started on broad spectrum antibiotics with vancomycin and Zosyn. Blood cultures obtained. -Continue antibiotics; follow-up blood cultures. Qualifiers: Sepsis type: sepsis due to unspecified organism Qualified Code(s): A41.9 - Sepsis, unspecified organism (2) Decubitus ulcer Current Visit: Yes Status: Acute Assessment and plan: Small 3mm skin sore just right of superior gluteal fold and 2cm red area with induration and firmness with a 1cm nodular area just superior midline of gluteal fold withou drainage and skin sloughing. No evidence of fluid collection or bony erosion to suggest osteomyelitis. -Continue antibiotics -Wound care consult -Surgery consult Qualifiers: Pressure injury location: sacral region Pressure injury stage: unspecified pressure injury stage Qualified Code(s): L89.159 - Pressure ulcer of sacral region, unspecified stage (3) Perirectal fistula Current Visit: Yes Status: Acute Assessment and plan: CT scan of the abdomen and pelvis shows perianal soft tissue thickening with several gas bubbles within the thickened soft tissue which may indicate a perianal fistula. Surgery has been consult and will evaluate the patient in the morning. We will continue with antibiotics for now. (4) Parkinsons disease Current Visit: No Status: Acute (5) DVT prophylaxis Current Visit: No Status: Acute Assessment and plan: Subcutaneous heparin - Time Spent With Patient Total time spent is greater than 50% in coordination of care (as documented) at patient's floor/unit and/or counseling patient:
[2018-12-03] MEDS: Acetaminophen 325 MG TABLET PO PRN ×2 (04:21→15:23)
[2018-12-03] MEDS: *HR* Heparin 5,000 UNIT/ML VIAL SQ SCH ×2 (07:28→15:23)
[2018-12-03] MEDS: Piperacillin/Tazobactam 3.375 GM in 0.9 % Sodium Chloride Mini Bag 100 ML IVPB SCH ×2 (07:29→15:24)
--- NOTE | 2018-12-03 08:48 | Event Note ---
Date of Encounter: 12/03/18 Time of Encounter: 11:00 Patient seen and evaluated by nocturnalist earlier this morning and also by myself. Briefly patient is an 83-year-old female with past medical history significant for stage II decubitus sacral/coccyx ulcer managed by wound clinic (Dr. Mulligan) and Parkinsons disease who presents due to fevers and evolving bedsore that has become more erythematous. 1. Stage II decubitus sacral/coccyx ulcer CT of the abdomen/pelvis revealed subcutaneous and skin edema and thickening overlying the sacrum and coccyx in addition to perianal soft tissue thickening with several gas bubbles within the thickened soft tissues but no fluid collection that may indicate perianal fistula. Continue IV Zosyn and vancomycin started in the ER General surgery consulted and appreciate recommendations 2. Perianal fistula As above 3. Sepsis Patient met SIRS criteria on admission with leukocytosis, tachycardia and tachypnea with source of infection. Continue IV antibiotics as above
--- NOTE | 2018-12-03 10:31 | AcuteCare Surgery Consult Note ---
<Sandhya Doshi N - Last Filed: 12/03/18 10:26> Date of Encounter: 12/03/18 Time of Encounter: 08:00 Assessment and Plan (1) Decubitus ulcer Current Visit: Yes Status: Acute History of decubitus ulcer with CT indication for a possible perianal fistula. Examined the site with attending present. No fistula noted on exam. Recommend wound care with every 2 hour turns, optimizing nutrition with protein supplementation. No surgical intervention indicated at this time. Will recommend patient follow-up with the wound clinic 2 weeks after discharge. Qualifiers: Pressure injury location: sacral region Pressure injury stage: unspecified pressure injury stage Qualified Code(s): L89.159 - Pressure ulcer of sacral region, unspecified stage History of Present Illness Consult date: 12/03/18 History of present illness: Patient is an 83-year-old female with a past medical history of hypertension, arthritis, severe Parkinson's disease and is bedbound with a history of decubitus ulcers who presented to the emergency department due to sacral wound and fevers. Patient was found to have a temperature 100.9 and leukocytosis of 14.2. CT scan of the abdomen and pelvis showed subcutaneous and skin edema and thickening overlying the sacrum and coccyx without fluid collection. There was perianal soft tissue thickening with gas bubbles within the thickened soft tissues concerning for a perianal fistula. Patient was admitted to the hospital and started on vancomycin and Zosyn. Surgery was consulted for evaluation the wound. Today the patient is resting in bed, she is nonverbal and cannot provide any further history. The area was examined and no fistula was noted. Past Med Surg Social Fam HX - Past Medical History Medical history: GERD, hypertension, osteoporosis Additional medical history: Parkinson, Cellulits, Hiatal hernia, hypoxia, [place], Tinnitis, colon polyps, Diverticular disease, tinnitus, PVD, Scoliosis Psychiatric history: no psych history - Past Surgical History Surgical History: cholecystectomy, herniorrhaphy, hysterectomy Additional surgical history: Back sx, left eye cataract, hernia, tubal ligation, partial hysterectomy, broke left hip. - Social History Smoking Status: Never smoker Smokeless Tobacco Status: No Alcohol use: none Drug use: none - Family History Father Adopted: No Family Member Ethnicity: Non- Twin of Family Member: Yes, Fraternal Living Status: Hx Family Cardiac Disorders: Yes Hx Family Respiratory Disorders: No Hx Family Cancer: No Hx Family GI Disorders: No Hx Family Endocrine Disorder: No Hx Family Neuromuscular Disorders: No Hx Family Neurologic Disorders: No Hx Family HEENT Disorders: No Hx Family Autoimmune Disorders: No Mother Adopted: No Family Member Ethnicity: Non- Living Status: Hx Family Cardiac Disorders: No Hx Family Respiratory Disorders: No Hx Family Cancer: No Hx Family GI Disorders: No Hx Family Endocrine Disorder: Yes Hx Family Neuromuscular Disorders: No Hx Family Neurologic Disorders: No Hx Family HEENT Disorders: No Hx Family Autoimmune Disorders: No Medications and Allergies Amitriptyline [Elavil] 100 mg PO HS 09/12/16 [History] Aspirin [Lo-Dose Aspirin EC] 81 mg PO DAILY 09/12/16 [History] Atenolol [Tenormin] 25 mg PO QPM 09/12/16 [History] Carbidopa/Levodopa 25/100 [Sinemet 25/100] 1.5 tab PO TID 09/12/16 [History] Carboxymethylcellulose Sodium [Restore Tears] 1 drop BOTH EYES QAM 09/12/16 [History] Fluticasone Propionate Nasal [Flonase] 50 mcg NS BID 09/12/16 [History] Omeprazole [PriLOSEC] 40 mg PO DAILY 09/12/16 [History] GuaiFENesin ER [Mucinex] 600 mg PO BID tbbp.12hr 09/15/16 [Rx] Ipratropium/Albuterol Neb [Duoneb] 3 ml IH [id number] PRN #0 inhsol 09/15/16 [Rx] Mag Hydrox/Al Hydrox/Simeth [Maalox] 15 ml PO Q6HR PRN #0 udc 09/15/16 [Rx] Melatonin 3 mg PO HS tablet 09/15/16 [Rx] Sennosides/Docusate Sodium [Senna Plus] 1 tab PO DAILY 30 Days tablet 09/15/16 [Rx] Ibuprofen [Ibu-200] 200 mg PO Q6H PRN 12/03/18 [History] Peg 400/Hypromellose/Glycerin [Sm Dry Eye Relief Eye Drops] 15 ml OP DAILY 12/03/18 [History] Allergy/AdvReac Type Severity Reaction Status Date / Time No Known Allergies Allergy Unverified 12/02/18 20:56 Review of Systems ROS unobtainable: due to mental status All systems PM: The remainder of the systems were reviewed and are negative General Surgery Exam Initial Vital Signs Temp Pulse Resp BP Pulse Ox 100.9 F H 76 18 124/48 92 12/02/18 20:56 12/02/18 20:56 12/02/18 20:56 12/02/18 20:56 12/02/18 20:56 - General physical appearance well developed, well nourished - Eyes PERRL, normal ocular movement - ENT normal nares, normal mucosa - Neck trachea midline, no venous distension - Respiratory normal expansion, clear to auscultation - Cardiovascular Cardiovascular exam: Present: RRR. Absent: murmurs - Abdomen Abdomen general surgery: Present: bowel sounds present, soft, non tender - Genitourinary Present: normal external genitalia - Integumentary Integumentary general surgery: Present: other (Decubitus ulcer present, no tracking or fistula noted) - Neurologic Present: CN 2-12 grossly intact - Musculoskeletal Present: normal posture - Psychiatric Psychiatric general surgery: Present: A&Ox3, appropriate Exam Initial Vital Signs Temp Pulse Resp BP Pulse Ox 100.9 F H 76 18 124/48 92 12/02/18 20:56 12/02/18 20:56 12/02/18 20:56 12/02/18 20:56 12/02/18 20:56 Results - Labs 12/02/18 22:09 12/02/18 22:09 Abnormal lab results WBC 14.2 K/mcL (4.3-11.1) H 12/02/18 22:09 12.8 K/mcL (1.6-8.9) H 12/02/18 22:09 0.4 K/mcL (0.6-4.6) L 12/02/18 22:09 37 (6-26) H 12/02/18 22:09 Glucose 161 mg/dL (70-105) H 12/02/18 22:09 AST 55 Units/L (13-39) H 12/02/18 22:09 Ur Specific Henefer > 1.030 (1.010-1.025) H 12/03/18 00:00 30 mg/dL (Neg-Trace) H 12/03/18 00:00 Trace mg/dL (Negative) H 12/03/18 00:00 Diabetes panel 12/02/18 Range/Units 22:09 Sodium 136 (136-145) mEq/L Potassium 4.0 (3.5-5.1) mEq/L Chloride 103 (98-107) mEq/L Carbon Dioxide 24 (23-29) mEq/L BUN 23 (8-23) mg/dL Creatinine 0.63 (0.60-1.20) mg/dL Glucose 161 H (70-105) mg/dL Calcium 9.0 (8.6-10.3) mg/dL AST 55 H (13-39) Units/L ALT 12 (7-52) Units/L Alkaline Phosphatase 102 (34-104) Units/L Albumin 3.8 (3.5-5.7) g/dL Calcium panel 12/02/18 Range/Units 22:09 Calcium 9.0 (8.6-10.3) mg/dL Albumin 3.8 (3.5-5.7) g/dL Pituitary panel 12/02/18 Range/Units 22:09 Sodium 136 (136-145) mEq/L Potassium 4.0 (3.5-5.1) mEq/L Chloride 103 (98-107) mEq/L Carbon Dioxide 24 (23-29) mEq/L BUN 23 (8-23) mg/dL Creatinine 0.63 (0.60-1.20) mg/dL Glucose 161 H (70-105) mg/dL Calcium 9.0 (8.6-10.3) mg/dL Adrenal panel 12/02/18 Range/Units 22:09 Sodium 136 (136-145) mEq/L Potassium 4.0 (3.5-5.1) mEq/L Chloride 103 (98-107) mEq/L Carbon Dioxide 24 (23-29) mEq/L BUN 23 (8-23) mg/dL Creatinine 0.63 (0.60-1.20) mg/dL Glucose 161 H (70-105) mg/dL Calcium 9.0 (8.6-10.3) mg/dL Total Bilirubin 0.4 (0.3-1.0) mg/dL AST 55 H (13-39) Units/L ALT 12 (7-52) Units/L Alkaline Phosphatase 102 (34-104) Units/L Albumin 3.8 (3.5-5.7) g/dL All other labs normal. Consult Discharge Plan - Plan Referrals: NONE,PCP [Primary Care Provider] - <Jose ArmandoBobby Sandoval - Last Filed: 12/03/18 16:44> Date of Encounter: 12/03/18 Review of Systems All systems PM: The remainder of the systems were reviewed and are negative General Surgery Exam Initial Vital Signs Temp Pulse Resp BP Pulse Ox 100.9 F H 76 18 124/48 92 12/02/18 20:56 12/02/18 20:56 12/02/18 20:56 12/02/18 20:56 12/02/18 20:56 Exam Initial Vital Signs Temp Pulse Resp BP Pulse Ox 100.9 F H 76 18 124/48 92 12/02/18 20:56 12/02/18 20:56 12/02/18 20:56 12/02/18 20:56 12/02/18 20:56 Results - Labs 12/03/18 10:58 12/03/18 10:58 Abnormal lab results WBC 11.2 K/mcL (4.3-11.1) H 12/03/18 10:58 RBC 3.65 M/mcL (3.82-4.97) L 12/03/18 10:58 Hgb 11.0 g/dL (11.5-15.4) L 12/03/18 10:58 Hct 34.3 % (35.3-44.9) L 12/03/18 10:58 10.0 K/mcL (1.6-8.9) H 12/03/18 10:58 0.4 K/mcL (0.6-4.6) L 12/03/18 10:58 PT 14.3 Seconds (9.4-12.1) H 12/03/18 10:58 Chloride 109 mEq/L (98-107) H 12/03/18 10:58 Carbon Dioxide 22 mEq/L (23-29) L 12/03/18 10:58 0.52 mg/dL (0.60-1.20) L 12/03/18 10:58 31 (6-26) H 12/03/18 10:58 Glucose 163 mg/dL (70-105) H 12/03/18 10:58 Calcium 8.2 mg/dL (8.6-10.3) L 12/03/18 10:58 AST 60 Units/L (13-39) H 12/03/18 10:58 ALT 64 Units/L (7-52) H 12/03/18 10:58 5.9 g/dL (6.4-8.9) L 12/03/18 10:58 3.2 g/dL (3.5-5.7) L 12/03/18 10:58 Ur Specific Henefer > 1.030 (1.010-1.025) H 12/03/18 00:00 30 mg/dL (Neg-Trace) H 12/03/18 00:00 Trace mg/dL (Negative) H 12/03/18 00:00 Diabetes panel 12/02/18 12/03/18 Range/Units 22:09 10:58 Sodium 136 136 (136-145) mEq/L Potassium 4.0 3.7 (3.5-5.1) mEq/L Chloride 103 109 H (98-107) mEq/L Carbon Dioxide 24 22 L (23-29) mEq/L BUN 23 16 (8-23) mg/dL Creatinine 0.63 0.52 L (0.60-1.20) mg/dL Glucose 161 H 163 H (70-105) mg/dL Calcium 9.0 8.2 L (8.6-10.3) mg/dL AST 55 H 60 H (13-39) Units/L ALT 12 64 H (7-52) Units/L Alkaline Phosphatase 102 87 (34-104) Units/L Albumin 3.8 3.2 L (3.5-5.7) g/dL Calcium panel 12/02/18 12/03/18 Range/Units 22:09 10:58 Calcium 9.0 8.2 L (8.6-10.3) mg/dL Albumin 3.8 3.2 L (3.5-5.7) g/dL Pituitary panel 12/02/18 12/03/18 Range/Units 22:09 10:58 Sodium 136 136 (136-145) mEq/L Potassium 4.0 3.7 (3.5-5.1) mEq/L Chloride 103 109 H (98-107) mEq/L Carbon Dioxide 24 22 L (23-29) mEq/L BUN 23 16 (8-23) mg/dL Creatinine 0.63 0.52 L (0.60-1.20) mg/dL Glucose 161 H 163 H (70-105) mg/dL Calcium 9.0 8.2 L (8.6-10.3) mg/dL Adrenal panel 12/02/18 12/03/18 Range/Units 22:09 10:58 Sodium 136 136 (136-145) mEq/L Potassium 4.0 3.7 (3.5-5.1) mEq/L Chloride 103 109 H (98-107) mEq/L Carbon Dioxide 24 22 L (23-29) mEq/L BUN 23 16 (8-23) mg/dL Creatinine 0.63 0.52 L (0.60-1.20) mg/dL Glucose 161 H 163 H (70-105) mg/dL Calcium 9.0 8.2 L (8.6-10.3) mg/dL Total Bilirubin 0.4 0.4 (0.3-1.0) mg/dL AST 55 H 60 H (13-39) Units/L ALT 12 64 H (7-52) Units/L Alkaline Phosphatase 102 87 (34-104) Units/L Albumin 3.8 3.2 L (3.5-5.7) g/dL All other labs normal. - Attending Attestation I have personally seen and examined the patient. I have reviewed pertinent labs, imaging, progress notes, including this one. I have discussed the plan in thorough detail with the resident and nurse practitioner. I agree with the above assessment and plan and wish to add the following... allevyn pad q2hr turns nutrition optimziation schedule to see in my wound clinic in 2 weeks after discharge general surgery will sign off
[2018-12-03 11:24] LABS: Basophils % 0.2 %; Eosinophils # 0.1 K/mcL (0.0-0.6); Hematocrit 34.3 % (35.3-44.9); Immature Granulocytes % 0.4 % (0-4); Lymphocytes # 0.4 K/mcL (0.6-4.6); Lymphocytes % 3.2 %; Mean Corpuscular HGB Conc 32.1 g/dL (31.6-35.5); Mean Corpuscular Hemoglobin 30.1 pg (28.0-33.3); Mean Platelet Volume 10.8 fL (9.4-12.4); Monocytes # 0.7 K/mcL (0.0-1.3); Monocytes % 5.8 %; Platelet Count 162 K/mcL (140-400); Red Blood Count 3.65 M/mcL (3.82-4.97); Red Cell Distribution Width 13.3 % (11.5-14.5); Segmented Neutrophils % 89.4 %
[2018-12-03 11:33] LABS: INR 1.3; Prothrombin Time 14.3 Seconds (9.4-12.1)
[2018-12-03 11:36] LABS: Activated Partial Thrombo Time 27.9 Seconds (26.0-36.0)
[2018-12-03 11:42] LABS: Alanine Aminotransferase 64 Units/L (7-52); Albumin 3.2 g/dL (3.5-5.7); Albumin/Globulin Ratio 1.2 (1.1-2.2); Alkaline Phosphatase 87 Units/L (34-104); Aspartate Amino Transferase 60 Units/L (13-39); BUN/Creatinine Ratio 31 (6-26); Bilirubin,Total 0.4 mg/dL (0.3-1.0); Blood Urea Nitrogen 16 mg/dL (8-23); Calcium 8.2 mg/dL (8.6-10.3); Carbon Dioxide 22 mEq/L (23-29); Chloride 109 mEq/L (98-107); Globulin 2.7 g/dL (2.4-3.5); Glucose 163 mg/dL (70-105); Magnesium 1.7 mg/dL (1.6-2.6); Osmolality,Calculated 287 (280-300); Potassium 3.7 mEq/L (3.5-5.1); Sodium 136 mEq/L (136-145); Total Protein 5.9 g/dL (6.4-8.9); eGFR For Non-African Americans > 60 (> 60)
[2018-12-03] MEDS: Carbidopa/Levodopa 25/100 TABLET PO SCH (21:38)
[2018-12-03] MEDS: Lactobacillus 1 EACH CAP.SPRINK PO SCH (21:38)
[2018-12-03] MEDS: Artificial Tears SOLN 15 ML BOTTLE BOTH EYES SCH (21:39)
[2018-12-03] MEDS: Sennosides/Docusate Sodium TABLET PO SCH (21:40)
[2018-12-04] MEDS: Piperacillin/Tazobactam 3.375 GM in 0.9 % Sodium Chloride Mini Bag 100 ML IVPB SCH ×3 (00:07→16:04)
[2018-12-04] MEDS: *HR* Heparin 5,000 UNIT/ML VIAL SQ SCH ×3 (00:07→16:04)
[2018-12-04] MEDS: 0.9 % Sodium Chloride 1,000 ML IVC SCH ×4 (00:14→21:06)
--- NOTE | 2018-12-04 08:53 | Internal Med Progress Note ---
Hospitalist Progress Note - Encounter Date of Encounter: 12/04/18 Time of Encounter: 11:00 - Subjective Interval History: Patient is an 83-year-old female with past medical history significant for stage II decubitus sacral/coccyx ulcer managed by wound clinic (Dr. Mulligan) and Parkinsons disease who presents due to fevers and evolving worsening of ulcer that has become more erythematous. Patient's sacral ulcer appears less erythematous without much drainage this morning - Exam Vitals: Temp Pulse Resp BP Pulse Ox 98.7 F 93 19 158/68 96 12/04/18 07:21 12/04/18 07:21 12/04/18 07:21 12/04/18 07:21 12/04/18 07:21 Exam: Gen.: Nonacute distress, alert and oriented 3 ENT: Mucosal membranes moist Respiratory: Lungs are clear to auscultation bilaterally without any wheezing rhonchi or rales Cardiovascular: Normal S1 and S2 regular rate rhythm no murmurs rubs or gallops Abdomen: Soft, nontender and nondistended with positive bowel sounds Extremities: No lower extremity edema Skin: Stage2 sacral ulcer with decreased surrounding erythema and without drainage - Assessment and Plan (1) Ulcer of sacral region, stage 2 Current Visit: Yes Status: Acute Assessment and Plan: Patient with stage II decubitus sacral/coccyx ulcer managed by wound clinic (Dr. Mulligan) who presents due to fevers and evolving worsening of ulcer that has become more erythematous. CT of the abdomen/pelvis revealed subcutaneous and skin edema and thickening overlying the sacrum and coccyx in addition to perianal soft tissue thickening with several gas bubbles within the thickened soft tissues but no fluid collection that may indicate perianal fistula. General surgery consulted does not suspect patient has fistula as was not noted on their exam. Wound care consulted and appreciate recommendations Continue day 2 of IV Zosyn and vancomycin (2) Sepsis Current Visit: Yes Status: Acute Assessment and Plan: Resolved; continue IV antibiotics as above (3) Parkinsons disease Current Visit: No Status: Acute Assessment and Plan: Continue home dose of Sinemet (4) HTN (hypertension) Current Visit: No Status: Chronic Assessment and Plan: Continue home dose of atenolol (5) GERD (gastroesophageal reflux disease) Current Visit: Yes Status: Acute Assessment and Plan: Continue home dose of PPI DVT Prophylaxis: Heparin subcutaneous - Time Spent with Patient Total time spent is greater than 50% in coordination of care (as documented) at patient's floor/unit and/or counseling patient: Internal Medicine: Result - Labs CBC & Chem 7: 12/04/18 09:14 12/04/18 09:14 Labs: Short CBC 12/03/18 Range/Units 10:58 WBC 11.2 H (4.3-11.1) K/mcL Hgb 11.0 L (11.5-15.4) g/dL Hct 34.3 L (35.3-44.9) % Plt Count 162 (140-400) K/mcL Neutrophils # 10.0 H (1.6-8.9) K/mcL BMP 12/03/18 10:58 Sodium 136 Potassium 3.7 Chloride 109 H Carbon Dioxide 22 L BUN 16 Creatinine 0.52 L Glucose 163 H Calcium 8.2 L Liver Function 12/03/18 Range/Units 10:58 Total Bilirubin 0.4 (0.3-1.0) mg/dL AST 60 H (13-39) Units/L ALT 64 H (7-52) Units/L Alkaline Phosphatase 87 (34-104) Units/L Albumin 3.2 L (3.5-5.7) g/dL - ABG Interpretation ABG results: PT/INR, D-dimer PT 14.3 Seconds (9.4-12.1) H 12/03/18 10:58 Consult Discharge Plan - Plan Referrals: NONE,PCP [Primary Care Provider] - (2) Sepsis Qualifiers: Sepsis type: sepsis due to unspecified organism Qualified Code(s): A41.9 - Sepsis, unspecified organism (4) HTN (hypertension) Qualifiers: Hypertension type: essential hypertension Qualified Code(s): I10 - Essential (primary) hypertension
[2018-12-04 09:38] LABS: Basophils % 0.1 %; Eosinophils # 0.2 K/mcL (0.0-0.6); Eosinophils % 2.1 %; Hematocrit 32.1 % (35.3-44.9); Hemoglobin 10.4 g/dL (11.5-15.4); Immature Granulocytes % 0.2 % (0-4); Lymphocytes # 0.7 K/mcL (0.6-4.6); Lymphocytes % 8.8 %; Mean Corpuscular HGB Conc 32.4 g/dL (31.6-35.5); Mean Corpuscular Volume 92.5 fL (83.0-100.0); Mean Platelet Volume 10.5 fL (9.4-12.4); Monocytes # 0.6 K/mcL (0.0-1.3); Monocytes % 7.5 %; Neutrophils # 6.7 K/mcL (1.6-8.9); Platelet Count 176 K/mcL (140-400); Red Blood Count 3.47 M/mcL (3.82-4.97); Red Cell Distribution Width 13.5 % (11.5-14.5); Segmented Neutrophils % 81.3 %
[2018-12-04 09:57] LABS: BUN/Creatinine Ratio 27 (6-26); Blood Urea Nitrogen 12 mg/dL (8-23); Calcium 8.3 mg/dL (8.6-10.3); Carbon Dioxide 23 mEq/L (23-29); Chloride 106 mEq/L (98-107); Glucose 148 mg/dL (70-105); Osmolality,Calculated 285 (280-300); Potassium 3.3 mEq/L (3.5-5.1); Sodium 136 mEq/L (136-145); eGFR For Non-African Americans > 60 (> 60)
--- NOTE | 2018-12-04 10:31 | Urology - Consult Note ---
Date of Encounter: 12/04/18 Time of Encounter: 10:00 - Assessment and Plan (1) Urinary retention Current Visit: Yes Status: Acute Assessment and plan: Patient is an 83-year-old female who presents with a history of urinary retent ion. Patient underwent bladder scan with elevated PVR greater than 600 after nursing staff noticed patient failed to void during day shift. Nursing staff successfully placed an indwelling Putnam catheter. Putnam appears clear and is draining sufficiently. I reviewed W records, and patient is not established with [facility]. Patient appears to have a history of incontinence but no documented history of retention. I suspect patient's retention is multifactorial and likely secondary to debilitated status and neurogenic bladder associated with Parkinson's disease. We will plan to continue with indwelling Putnam catheter throughout hospital stay, and Dr. South will be in to reevaluate patient this afternoon. Urology CN:HPI Consult date: 12/04/18 Reason for consult Urology: Other (urinary retention) Requesting physician: Shadi Butler History of present illness: Patient is an 83-year-old female who presents with urinary retention. Patient initially presented to the emergency department with her caregivers for reported febrile illness with maximum recorded temperature of 102F at home. Patient has multiple sacral decubiti, and caregivers were concerned for possible wound infection. Patient underwent contrast CT of the abdomen and pelvis, and she was subsequently admitted with a surgical consultation. CT suggests unremarkable bladder, ureters and kidneys without hydronephrosis or obvious obstruction. Nursing staff performed a bladder scan that revealed an elevated PVR greater than 600 mL. Patient was unable to voidf, and a Putnam catheter was subsequently placed. Patient has a history of progressive Parkinson's disease, and she is nonverbal and immobilized. On my evaluation, patient is resting comfortably in bed in no apparent distress. Putnam catheter is indwelling and draining transparent, clear yellow urine into bedside bag. Past Med Surg Social Fam HX - Past Medical History Medical history: GERD, hypertension, osteoporosis Additional medical history: Parkinson, Cellulits, Hiatal hernia, hypoxia, [place], Tinnitis, colon polyps, Diverticular disease, tinnitus, PVD, Scoliosis Psychiatric history: no psych history - Past Surgical History Surgical History: cholecystectomy, herniorrhaphy, hysterectomy Additional surgical history: Back sx, left eye cataract, hernia, tubal ligation, partial hysterectomy, broke left hip. - Social History Smoking Status: Never smoker Smokeless Tobacco Status: No Alcohol use: none Drug use: none - Family History Father Adopted: No Family Member Ethnicity: Non- Twin of Family Member: Yes, Fraternal Living Status: Hx Family Cardiac Disorders: Yes Hx Family Respiratory Disorders: No Hx Family Cancer: No Hx Family GI Disorders: No Hx Family Endocrine Disorder: No Hx Family Neuromuscular Disorders: No Hx Family Neurologic Disorders: No Hx Family HEENT Disorders: No Hx Family Autoimmune Disorders: No Mother Adopted: No Family Member Ethnicity: Non- Living Status: Hx Family Cardiac Disorders: No Hx Family Respiratory Disorders: No Hx Family Cancer: No Hx Family GI Disorders: No Hx Family Endocrine Disorder: Yes Hx Family Neuromuscular Disorders: No Hx Family Neurologic Disorders: No Hx Family HEENT Disorders: No Hx Family Autoimmune Disorders: No Medications and Allergies Amitriptyline [Elavil] 100 mg PO HS 09/12/16 [History] Aspirin [Lo-Dose Aspirin EC] 81 mg PO DAILY 09/12/16 [History] Atenolol [Tenormin] 25 mg PO QPM 09/12/16 [History] Carbidopa/Levodopa 25/100 [Sinemet 25/100] 1.5 tab PO TID 09/12/16 [History] Fluticasone Propionate Nasal [Flonase] 2 spray NS DAILY 09/12/16 [History] Omeprazole [PriLOSEC] 40 mg PO DAILY 09/12/16 [History] Sennosides/Docusate Sodium [Senna Plus] 1 tab PO DAILY 30 Days tablet 09/15/16 [Rx] Cetirizine HCl 10 mg PO DAILY 12/03/18 [History] DiphenhydraMINE [Benadryl] 50 mg PO HS 12/03/18 [History] Ibuprofen [Ibu-200] 200 mg PO Q6H PRN 12/03/18 [History] Lactobacillus Combination No.9 [Adult 50 + Probiotic] 1 cap PO DAILY 12/03/18 [History] Peg 400/Hypromellose/Glycerin [Sm Dry Eye Relief Eye Drops] 1 drop BOTH EYES DAILY PRN 12/03/18 [History] Allergy/AdvReac Type Severity Reaction Status Date / Time No Known Allergies Allergy Unverified 12/03/18 17:19 Review of Systems ROS unobtainable: due to mental status Exam Initial Vital Signs Temp Pulse Resp BP Pulse Ox 100.9 F H 76 18 124/48 92 12/02/18 20:56 12/02/18 20:56 12/02/18 20:56 12/02/18 20:56 12/02/18 20:56 - General physical appearance Present: no distress, no pain - Eyes Present: other (Patient resting with eyes closed) - ENT Present: no congestion. Absent: nasal discharge - Neck Present: no masses, trachea midline, no lymphadenopathy - Respiratory Present: normal respiratory effort - Cardiovascular Cardiovascular exam IM: RRR - Abdomen Abdomen: Absent: distended - Genitourinary Present: other (Putnam catheter indwelling and draining transparent, clear yellow urine into bedside bag) - Integumentary Present: no rash, no abnormal pigmentation - Neurologic Present: disoriented - Musculoskeletal Present: other (No pedal edema) Urology Results - Labs 12/04/18 09:14 12/04/18 09:14 Abnormal lab results WBC 11.2 K/mcL (4.3-11.1) H 12/03/18 10:58 RBC 3.47 M/mcL (3.82-4.97) L 12/04/18 09:14 Hgb 10.4 g/dL (11.5-15.4) L 12/04/18 09:14 Hct 32.1 % (35.3-44.9) L 12/04/18 09:14 10.0 K/mcL (1.6-8.9) H 12/03/18 10:58 0.4 K/mcL (0.6-4.6) L 12/03/18 10:58 PT 14.3 Seconds (9.4-12.1) H 12/03/18 10:58 Potassium 3.3 mEq/L (3.5-5.1) L 12/04/18 09:14 Chloride 109 mEq/L (98-107) H 12/03/18 10:58 Carbon Dioxide 22 mEq/L (23-29) L 12/03/18 10:58 0.45 mg/dL (0.60-1.20) L 12/04/18 09:14 27 (6-26) H 12/04/18 09:14 Glucose 148 mg/dL (70-105) H 05/13/19 09:14 Calcium 8.3 mg/dL (8.6-10.3) L 12/04/18 09:14 AST 60 Units/L (13-39) H 12/03/18 10:58 ALT 64 Units/L (7-52) H 12/03/18 10:58 5.9 g/dL (6.4-8.9) L 12/03/18 10:58 3.2 g/dL (3.5-5.7) L 12/03/18 10:58 Ur Specific Elida > 1.030 (1.010-1.025) H 12/03/18 00:00 30 mg/dL (Neg-Trace) H 12/03/18 00:00 Trace mg/dL (Negative) H 12/03/18 00:00 Diabetes panel 12/03/18 12/04/18 Range/Units 10:58 09:14 Sodium 136 136 (136-145) mEq/L Potassium 3.7 3.3 L (3.5-5.1) mEq/L Chloride 109 H 106 (98-107) mEq/L Carbon Dioxide 22 L 23 (23-29) mEq/L BUN 16 12 (8-23) mg/dL Creatinine 0.52 L 0.45 L (0.60-1.20) mg/dL Glucose 163 H 148 H (70-105) mg/dL Calcium 8.2 L 8.3 L (8.6-10.3) mg/dL AST 60 H (13-39) Units/L ALT 64 H (7-52) Units/L Alkaline Phosphatase 87 (34-104) Units/L Albumin 3.2 L (3.5-5.7) g/dL Calcium panel 12/03/18 12/04/18 Range/Units 10:58 09:14 Calcium 8.2 L 8.3 L (8.6-10.3) mg/dL Albumin 3.2 L (3.5-5.7) g/dL Pituitary panel 12/03/18 12/04/18 Range/Units 10:58 09:14 Sodium 136 136 (136-145) mEq/L Potassium 3.7 3.3 L (3.5-5.1) mEq/L Chloride 109 H 106 (98-107) mEq/L Carbon Dioxide 22 L 23 (23-29) mEq/L BUN 16 12 (8-23) mg/dL Creatinine 0.52 L 0.45 L (0.60-1.20) mg/dL Glucose 163 H 148 H (70-105) mg/dL Calcium 8.2 L 8.3 L (8.6-10.3) mg/dL Adrenal panel 12/03/18 12/04/18 Range/Units 10:58 09:14 Sodium 136 136 (136-145) mEq/L Potassium 3.7 3.3 L (3.5-5.1) mEq/L Chloride 109 H 106 (98-107) mEq/L Carbon Dioxide 22 L 23 (23-29) mEq/L BUN 16 12 (8-23) mg/dL Creatinine 0.52 L 0.45 L (0.60-1.20) mg/dL Glucose 163 H 148 H (70-105) mg/dL Calcium 8.2 L 8.3 L (8.6-10.3) mg/dL Total Bilirubin 0.4 (0.3-1.0) mg/dL AST 60 H (13-39) Units/L ALT 64 H (7-52) Units/L Alkaline Phosphatase 87 (34-104) Units/L Albumin 3.2 L (3.5-5.7) g/dL All other labs normal. - Imaging CT scan - abdomen: report reviewed, image reviewed CT scan - pelvis: report reviewed, image reviewed Consult Discharge Plan - Plan Referrals: NONE,PCP [Primary Care Provider] -
[2018-12-04 11:49] LABS: Vancomycin,Trough 9 mcg/mL (5-10)
[2018-12-04] MEDS: Lactobacillus 1 EACH CAP.SPRINK PO SCH ×2 (11:52→20:53)
[2018-12-04] MEDS: Carbidopa/Levodopa 25/100 TABLET PO SCH ×3 (11:52→20:52)
[2018-12-04] MEDS: Sennosides/Docusate Sodium TABLET PO SCH (11:53)
[2018-12-04] MEDS: Aspirin Enteric Coated 81 MG Tablet PO SCH (11:53)
[2018-12-04] MEDS: Loratadine 10 MG TABLET PO SCH (11:53)
[2018-12-04] MEDS: Fluticasone Propionate Nasal 50 MCG/SPRAY BOTTLE NS SCH (11:54)
[2018-12-04] MEDS: Artificial Tears SOLN 15 ML BOTTLE BOTH EYES SCH (20:53)
[2018-12-04] MEDS: Acetaminophen 325 MG TABLET PO PRN (22:43)
[2018-12-05] MEDS: *HR* Heparin 5,000 UNIT/ML VIAL SQ SCH ×2 (00:49→11:08)
[2018-12-05] MEDS: Piperacillin/Tazobactam 3.375 GM in 0.9 % Sodium Chloride Mini Bag 100 ML IVPB SCH ×2 (00:55→11:09)
[2018-12-05 08:49] LABS: Basophils % 0.1 %; Eosinophils # 0.2 K/mcL (0.0-0.6); Eosinophils % 1.9 %; Hemoglobin 10.2 g/dL (11.5-15.4); Immature Granulocytes % 0.2 % (0-4); Lymphocytes # 0.9 K/mcL (0.6-4.6); Lymphocytes % 11.4 %; Mean Corpuscular HGB Conc 31.9 g/dL (31.6-35.5); Mean Corpuscular Hemoglobin 29.7 pg (28.0-33.3); Mean Corpuscular Volume 93.3 fL (83.0-100.0); Mean Platelet Volume 11.1 fL (9.4-12.4); Monocytes # 0.9 K/mcL (0.0-1.3); Monocytes % 10.9 %; Neutrophils # 6.1 K/mcL (1.6-8.9); Platelet Count 184 K/mcL (140-400); Red Blood Count 3.43 M/mcL (3.82-4.97); Red Cell Distribution Width 13.6 % (11.5-14.5); Segmented Neutrophils % 75.5 %
[2018-12-05 08:58] LABS: BUN/Creatinine Ratio 24 (6-26); Blood Urea Nitrogen 10 mg/dL (8-23); Calcium 8.6 mg/dL (8.6-10.3); Carbon Dioxide 26 mEq/L (23-29); Chloride 107 mEq/L (98-107); Glucose 97 mg/dL (70-105); Osmolality,Calculated 285 (280-300); Potassium 3.4 mEq/L (3.5-5.1); Sodium 138 mEq/L (136-145); eGFR For Non-African Americans > 60 (> 60)
--- NOTE | 2018-12-05 09:34 | Urology Progress Note ---
Date of Encounter: 12/05/18 Time of Encounter: 08:25 - Assessment and Plan (1) Urinary retention Current Visit: Yes Status: Acute Assessment and plan: Patient is an 83-year-old female who presents with a history of urinary retent ion, advanced Parkinson's disease, and multiple sacral decubiti. We will plan to leave indwelling Putnam catheter in place throughout hospital stay and arrange for an outpatient follow-up with possible voiding trial with Dr. South. Urology is available if needed. Progress Note Narrative: Patient seen and examined lying in bed in apparent distress. Putnam catheter is indwelling and draining transparent, clear yellow urine into bedside bag. Objective Initial Vital Signs Temp Pulse Resp BP Pulse Ox 100.9 F H 76 18 124/48 92 12/02/18 20:56 12/02/18 20:56 12/02/18 20:56 12/02/18 20:56 12/02/18 20:56 - General physical appearance Present: no distress, no pain - Respiratory Present: normal expansion, normal respiratory effort - Abdomen Absent: distended - Genitourinary Urine Appearance: Present: Clear - Integumentary Present: no rash, no abnormal pigmentation - Musculoskeletal Present: normal posture - Psychiatric Present: oriented to time, oriented to person, oriented to place, speech is normal, memory intact - Labs 12/05/18 08:11 12/05/18 08:11 Diabetes panel 12/04/18 12/05/18 Range/Units 09:14 08:11 Sodium 136 138 (136-145) mEq/L Potassium 3.3 L 3.4 L (3.5-5.1) mEq/L Chloride 106 107 (98-107) mEq/L Carbon Dioxide 23 26 (23-29) mEq/L BUN 12 10 (8-23) mg/dL Creatinine 0.45 L 0.42 L (0.60-1.20) mg/dL Glucose 148 H 97 (70-105) mg/dL Calcium 8.3 L 8.6 (8.6-10.3) mg/dL Calcium panel 12/04/18 12/05/18 Range/Units 09:14 08:11 Calcium 8.3 L 8.6 (8.6-10.3) mg/dL Pituitary panel 12/04/18 12/05/18 Range/Units 09:14 08:11 Sodium 136 138 (136-145) mEq/L Potassium 3.3 L 3.4 L (3.5-5.1) mEq/L Chloride 106 107 (98-107) mEq/L Carbon Dioxide 23 26 (23-29) mEq/L BUN 12 10 (8-23) mg/dL Creatinine 0.45 L 0.42 L (0.60-1.20) mg/dL Glucose 148 H 97 (70-105) mg/dL Calcium 8.3 L 8.6 (8.6-10.3) mg/dL Adrenal panel 12/04/18 12/05/18 Range/Units 09:14 08:11 Sodium 136 138 (136-145) mEq/L Potassium 3.3 L 3.4 L (3.5-5.1) mEq/L Chloride 106 107 (98-107) mEq/L Carbon Dioxide 23 26 (23-29) mEq/L BUN 12 10 (8-23) mg/dL Creatinine 0.45 L 0.42 L (0.60-1.20) mg/dL Glucose 148 H 97 (70-105) mg/dL Calcium 8.3 L 8.6 (8.6-10.3) mg/dL Consult Discharge Plan - Plan Referrals: NONE,PCP [Primary Care Provider] -
[2018-12-05 10:50] VITALS: BP 124/77
[2018-12-05] MEDS: Carbidopa/Levodopa 25/100 TABLET PO SCH (11:07)
[2018-12-05] MEDS: Sennosides/Docusate Sodium TABLET PO SCH (11:07)
[2018-12-05] MEDS: Aspirin Enteric Coated 81 MG Tablet PO SCH (11:07)
[2018-12-05] MEDS: Lactobacillus 1 EACH CAP.SPRINK PO SCH (11:09)
[2018-12-05] MEDS: Fluticasone Propionate Nasal 50 MCG/SPRAY BOTTLE NS SCH (11:09)
[2018-12-05] MEDS: Loratadine 10 MG TABLET PO SCH (11:09)
[2018-12-05] MEDS: 0.9 % Sodium Chloride 1,000 ML IVC SCH (11:10)
--- NOTE | 2018-12-05 11:52 | Discharge Summary ---
- NOTES TO OUTPATIENT PROVIDER Notes to Outpatient Provider: Patient follow-up with urology for management of Putnam catheter. She is also to follow-up with wound care for sacral ulcer. Orders not resulted at time of discharge: Pending orders 12/02/18 22:09 Culture,Blood [BC] Stat Date of Encounter: 12/05/18 Time of Encounter: 11:00 - Discharge Diagnosis (1) Ulcer of sacral region, stage 2 Priority: Primary Status: Acute (2) Sepsis Priority: Secondary Status: Acute Qualifiers: Sepsis type: sepsis due to unspecified organism Qualified Code(s): A41.9 - Sepsis, unspecified organism (3) Parkinsons disease Priority: Secondary Status: Acute (4) HTN (hypertension) Priority: Secondary Status: Chronic Qualifiers: Hypertension type: essential hypertension Qualified Code(s): I10 - Essential (primary) hypertension (5) GERD (gastroesophageal reflux disease) Priority: Secondary Status: Acute Qualifiers: Esophagitis presence: esophagitis presence not specified Qualified Code(s): K21.9 - Gastro-esophageal reflux disease without esophagitis Hospital course: Patient is an 83-year-old female with past medical history significant for hypertension, arthritis, severe Parkinson's with inability to ambulate, and history of sacral ulcers, who presented to the ER with caregivers due to complaints of bedsores that have progressively worsened over the past 2 days. Caregiver reported that she developed a fever to 102F the day of admission. Patient was brought in for further evaluation. In the ER, patient was found to have a MAXIMUM TEMPERATURE of 100.9 with a leukocytosis of 14.2. Normal lactic acid. Examination of the sacral region showed small 3mm skin sore just right of superior gluteal fold and 2cm red area with induration and firmness with a 1cm nodular area just superior midline of gluteal fold without drainage and skin sloughing. CT of the abdomen/pelvis revealed subcutaneous and skin edema and thickening overlying the sacrum and coccyx in addition to perianal soft tissue thickening with several gas bubbles within the thickened soft tissues but no fluid collection that may indicate perianal fistula. During patients hospital stay Gen. Surgery was consulted and did not suspect patient had a perianal fistula on exam. She was continued on IV Zosyn and vancomycin and her leukocytosis resolved and she remained afebrile. Patient also developed urinary retention and urology was consulted with recommendations for Putnam catheter placement and to follow-up as an outpatient. Patient will be discharged to complete a seven-day course of Levaquin and Bactrim and follow-up with urology as an outpatient. Also recommended that patient follow-up with wound care. - Time Spent with Patient Total time spent providing and/or coordinating discharge services: Time spent: Less than 30 minutes - Discharge Medications Prescriptions: New Sulfamethoxazole/Trimeth DS [Bactrim DS] 1 each PO BID #14 tablet Levofloxacin [Levaquin] 500 mg PO DAILY 7 Days #7 tablet Continued Atenolol [Tenormin] 25 mg PO QPM Amitriptyline [Elavil] 100 mg PO HS Omeprazole [PriLOSEC] 40 mg PO DAILY Aspirin [Lo-Dose Aspirin EC] 81 mg PO DAILY Carbidopa/Levodopa 25/100 [Sinemet 25/100] 1.5 tab PO TID Fluticasone Propionate Nasal [Flonase] 2 spray NS DAILY Sennosides/Docusate Sodium [Senna Plus] 1 tab PO DAILY 30 Days tablet Ibuprofen [Ibu-200] 200 mg PO Q6H PRN PRN Reason: Pain Peg 400/Hypromellose/Glycerin [Sm Dry Eye Relief Eye Drops] 1 drop BOTH EYES DAILY PRN PRN Reason: Dry Eye(S) Cetirizine HCl 10 mg PO DAILY DiphenhydraMINE [Benadryl] 50 mg PO HS Lactobacillus Combination No.9 [Adult 50 + Probiotic] 1 cap PO DAILY Home Medications: Amitriptyline [Elavil] 100 mg PO HS 09/12/16 [History] Aspirin [Lo-Dose Aspirin EC] 81 mg PO DAILY 09/12/16 [History] Atenolol [Tenormin] 25 mg PO QPM 09/12/16 [History] Carbidopa/Levodopa 25/100 [Sinemet 25/100] 1.5 tab PO TID 09/12/16 [History] Fluticasone Propionate Nasal [Flonase] 2 spray NS DAILY 09/12/16 [History] Omeprazole [PriLOSEC] 40 mg PO DAILY 09/12/16 [History] Sennosides/Docusate Sodium [Senna Plus] 1 tab PO DAILY 30 Days tablet 09/15/16 [Rx] Cetirizine HCl 10 mg PO DAILY 05/12/19 [History] DiphenhydraMINE [Benadryl] 50 mg PO HS 12/03/18 [History] Ibuprofen [Ibu-200] 200 mg PO Q6H PRN 12/03/18 [History] Lactobacillus Combination No.9 [Adult 50 + Probiotic] 1 cap PO DAILY 12/03/18 [History] Peg 400/Hypromellose/Glycerin [Sm Dry Eye Relief Eye Drops] 1 drop BOTH EYES DAILY PRN 12/03/18 [History] Levofloxacin [Levaquin] 500 mg PO DAILY 7 Days #7 tablet 12/05/18 [Rx] Sulfamethoxazole/Trimeth DS [Bactrim DS] 1 each PO BID #14 tablet 12/05/18 [Rx] Allergies/Adverse Reactions: Allergy/AdvReac Type Severity Reaction Status Date / Time No Known Allergies Allergy Unverified 12/03/18 17:19 Date of admission: 12/03/18 00:56 Primary care physician: PCP NONE Consults: 12/02/18 23:49 Consult to Surgery [CONS] Stat Consulting Provider: Bobby Suárez Reason for Consult: concern for perianal fistula Time Notified: 23:49 Call Completed: Yes 12/03/18 01:02 Consult to Wound Care [CONS] Routine Reason for Consult: Sacral ulcer Call Completed: No 12/03/18 02:29 Consult to Hide Or Skin Buffer [CONS] Routine Reason for SW Consult: pt with home care, continue services 12/03/18 11:55 Consult to Urology [CONS] Routine Consulting Provider: Urology Desirae Reason for Consult: urinary retention -- Dr. Butler to call Call Completed: No 12/03/18 12:03 Consult to Nutrition [CONS] Routine Comment: Consulting Provider: NUTRITION Reason for Dietary Consult: MST Score PO Supplementation Consult to Physical Therapy [CONS] Routine Comment: Evaluate, develop and implement POC Reason for Consult: discharge evaluation; possible need for ECF Does patient have active BEDREST order?: No Is patient medically & hemodynamically stable?: Yes - Constitutional Vitals: Temp Pulse Resp BP Pulse Ox 97.6 F 86 17 124/77 93 12/05/18 10:49 12/05/18 10:49 12/05/18 10:49 12/05/18 10:49 12/05/18 10:49 Exam: Gen.: Nonacute distress Skin: Stage2 sacral ulcer with decreased surrounding erythema and without drainage - Patient Status Disposition: Home, Self-Care Condition: Good - Discharge Instructions Instructions: Sulfamethoxazole/Trimethoprim (By mouth), Levofloxacin (By mouth) Follow Up With: Alejandro South MD [Partnered Physician] - (Web requested 12/10/2018) NONE,PCP [Primary Care Provider] -
[2018-12-05] MEDS ORDERED: Aminoglycoside Consult 1 EACH MC ONE (13:25)
--- NOTE | 2018-12-05 15:50 | Electrocardiograph Report ---
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
[2018-12-05] MEDS ORDERED: levoFLOXacin 500 MG TABLET PO SCH (16:00)
[2018-12-05] MEDS ORDERED: Sulfamethoxazole/Trimeth DS 1 EACH TABLET PO SCH (21:00)
== END 2018-12-05 13:36 | disposition home or self-care (01) | DRG 872 ==
LOC: EMEROOARM 20:49 → 2ANU 20:49 → SUATTDRO 12-03 00:56 → 2ANU 12-03 01:14
PROVIDERS: ADMIT Internal Medicine; ATTEND Hospitalist